=== PATIENT | female | born 1945 | race Caucasian/White ===

== ENCOUNTER 2018-07-07 10:02 | Inpatient (IN) ==
--- NOTE | 2018-07-07 10:16 | Emergency Department Note ---
Disposition Clinical Impression: Acute kidney injury superimposed on chronic kidney disease, Hyperkalemia Pneumonia Qualifiers: Pneumonia type: due to unspecified organism Laterality: right Lung location: upper lobe of lung Qualified Code(s): J18.1 - Lobar pneumonia, unspecified organism Hypotension Qualifiers: Hypotension type: unspecified hypotension type Qualified Code(s): I95.9 - Hypotension, unspecified Disposition: Admitted As Inpatient Condition: Fair Time of Disposition: 12:43 General Adult HPI - General Chief complaint: ED General Medical Stated complaint: level of unconsciousness Time Seen by Provider: 07/07/18 10:13 Source: EMS Mode of arrival: EMS Limitations: altered mental status Nursing Notes Reviewed: Yes Vital Signs Reviewed: Yes - History of Present Illness HPI Narrative: This is a 72 yo F brought in by EMS for AMS. Pt has skin cancer with mets to bone and is on fentanyl patches. Pt is currently receiving radiation treatments. Apparently family at home where pt was picked up states pt became unresponsive and they state she has been on narcotic pain medication but in small doses and hasn't had anything today. Pt also had CKD. Pt is oriented to person but not to place and time. Pain Scale: 0 - Related Data Home Medications Medication Instructions Recorded Confirmed RX: Aspirin 81 mg PO DAILY 09/02/16 07/07/18 RX: Furosemide [Lasix] 20 mg PO DAILY 09/02/16 07/07/18 Docusate Sodium [Stool Softener] 100 mg PO DAILY 07/07/18 07/07/18 Omeprazole [PriLOSEC] 20 mg PO DAILY 07/07/18 07/07/18 Previous Rx's Medication Instructions Recorded RX: Ondansetron HCl [Zofran] 4 mg PO Q4H PRN #30 tablet 06/11/18 RX: Cyanocobalamin (B-12) [Vitamin 1,000 mcg SL DAILY #30 tablet 06/23/18 B12] RX: FentaNYL PATCH [Duragesic] 25 mcg TD Q72H 30 Days #10 07/06/18 patch.[id number] Allergies Allergy/AdvReac Type Severity Reaction Status Date / Time Penicillins Allergy Swelling Verified 07/06/18 15:11 of Lip/Tongue/Throat Limitations: ROS unobtainable due to patients medical condition (AMS) Past Medical History - Past Medical History Source: old records reviewed Medical history: Reports: arthritis, cancer, DVT, hypertension Surgical history: Reports: hysterectomy Psychiatric history: Reports: depression - Social History Smoking Status: Former smoker Smokeless Tobacco Status: No Alcohol use: Reports: none Drug use: Reports: none Physical Exam - General Limitations: altered mental status - Head Head exam: atraumatic, normocephalic - Eye Eye exam: Present: other (pinpoint pupils) - ENT ENT exam: normal exam, normal oropharynx - Neck Neck exam: Present: normal inspection, full ROM, trachea midline - Chest Chest inspection: Present: normal inspection, symmetric chest wall rise - Respiratory Respiratory exam: Present: normal lung sounds bilaterally, respiratory distress - Cardiovascular Cardiovascular exam: Present: regular rate, normal rhythm - Abdominal Exam Abdominal exam: Present: soft, Non-Tender - Extremities Exam Extremities exam: Present: normal inspection, full ROM. Absent: tenderness, pedal edema - Neurological Exam Neurological exam: Present: alert, other (oriented to person not to place and time) - Skin Skin exam: Present: warm, intact, diaphoresis Course - Consultations Consultation #1: I spoke with Dr. Carrillo nephjuana rodriguez to consult on pt. She requests a 3rd liter of fluid, cpk, linzeloid and cefepime for pneumonia treatment, and lag[place]as cath placement. Time: 12:28 Consultation #2: I spoke with Dr. Ernesto rodriguez to admit to ICU. Time: 12:42 Vital Signs Temperature 99.0 F 07/07/18 10:06 Pulse Rate 95 07/07/18 10:06 Respiratory Rate 16 07/07/18 10:06 Blood Pressure 171/124 07/07/18 10:06 O2 Sat by Pulse Oximetry 89 07/07/18 10:06 Temperature 98.6 F 07/07/18 18:10 Pulse Rate 78 07/07/18 19:00 Respiratory Rate 19 07/07/18 19:00 Blood Pressure 106/79 07/07/18 19:00 O2 Sat by Pulse Oximetry 91 07/07/18 19:00 Oxygen Delivery Oxygen Delivery Nasal Cannula Medical Decision Making - Medical Records Medical records reviewed: Yes I reviewed the patient's medical records. - Lab Data Lab results reviewed: Yes I reviewed the patient's lab results. Result diagrams: 07/07/18 11:00 07/07/18 18:11 Lab Results 03/19/19 03/19/19 03/19/19 Range/Units 10:58 11:00 11:00 WBC 11.4 H (4.3-11.1) K/mcL RBC 4.26 (3.82-4.97) M/mcL Hgb 12.8 (11.5-15.4) g/dL Hct 39.7 (35.3-44.9) % MCV 93.2 (83.0-100.0) fL MCH 30.0 (28.0-33.3) pg MCHC 32.2 (31.6-35.5) g/dL RDW 12.4 (11.5-14.5) % Plt Count 222 (140-400) K/mcL MPV 10.3 (9.4-12.4) fL Immature Gran % 1.8 (0-4) % Seg Neutrophils % 88.4 % Lymphocytes % 3.8 % Monocytes % 5.5 % Eosinophils % 0.1 % Basophils % 0.4 % Neutrophils # 10.1 H (1.6-8.9) K/mcL Lymphocytes # 0.4 L (0.6-4.6) K/mcL Monocytes # 0.6 (0.0-1.3) K/mcL Eosinophils # 0.0 (0.0-0.6) K/mcL Basophils # 0.1 (0.0-0.2) K/mcL Nucleated RBCs/100 WBC 0.5 H (0) /100 WBC PT (9.4-12.1) Seconds INR APTT (26.0-36.0) Seconds Sample Site L Radial ABG pH 7.36 (7.32-7.45) pH Units ABG pCO2 45 (35-45) mmHg ABG pO2 94 (85-104) mmHg ABG HCO3 25 (21-27) mEq/L ABG Total CO2 27 H (20-26) mEq/L ABG O2 Saturation 97 (95-98) % ABG Base Excess -1 (-2 to 3) mEq/L Bob Test N/A O2 Delivery Device Cannula Inspired O2 32.0 (1-15=lpm [id number]=%) Sodium 132 L (136-145) mEq/L Potassium 6.0 H (3.5-5.1) mEq/L Chloride 94 L (98-107) mEq/L Carbon Dioxide 21 L (23-29) mEq/L BUN 92 H (8-23) mg/dL Creatinine 4.62 H (0.60-1.20) mg/dL Est GFR ( Amer) 11 L (> 60) Est GFR (Non-Af Amer) 9 L (> 60) BUN/Creatinine Ratio 20 (6-26) Glucose 174 H (70-105) mg/dL Calculated Osmolality 307 H (280-300) Lactic Acid (0.5-2.2) mmol/L Calcium 13.3 H* (8.6-10.3) mg/dL Venous Ioniz Calcium (1.15-1.35) mmol/L Total Bilirubin 1.1 H (0.3-1.0) mg/dL AST 28 (13-39) Units/L ALT 14 (7-52) Units/L Alkaline Phosphatase 104 (34-104) Units/L Ammonia (16-53) mcmol/L Creatine Kinase (30-223) Units/L Troponin I < 0.03 (< 0.04) ng/mL B-Natriuretic Peptide (Less than 100) pg/mL Serum Total Protein 6.6 (6.4-8.9) g/dL Albumin 3.3 L (3.5-5.7) g/dL Globulin 3.3 (2.4-3.5) g/dL Albumin/Globulin Ratio 1.0 L (1.1-2.2) TSH 2.152 (0.340-5.600) mcIU/mL Urine Color (Yellow) Urine Clarity (Clear) Urine pH (5.0-8.0) pH Units Ur Specific [place] (1.010-1.025) Urine Protein (Neg-Trace) mg/dL Urine Glucose (UA) (Normal) mg/dL Urine Ketones (Negative) mg/dL Urine Blood (Negative) Urine Nitrite (Negative) Urine Bilirubin (Negative) Urine Urobilinogen (Normal) mg/dL Ur Leukocyte Esterase (Negative) Urine Microscopic RBC (0-3) per hpf Urine Microscopic WBC (0-3) per hpf Ur Squamous Epith Cells (None-Few) per lpf Amorphous Sediment (Few) Urine Bacteria (None-Few) per hpf Hyaline Casts (None-Few) per lpf 07/07/18 07/07/18 07/07/18 Range/Units 11:00 11:00 11:00 WBC (4.3-11.1) K/mcL RBC (3.82-4.97) M/mcL Hgb (11.5-15.4) g/dL Hct (35.3-44.9) % MCV (83.0-100.0) fL MCH (28.0-33.3) pg MCHC (31.6-35.5) g/dL RDW (11.5-14.5) % Plt Count (140-400) K/mcL MPV (9.4-12.4) fL Immature Gran % (0-4) % Seg Neutrophils % % Lymphocytes % % Monocytes % % Eosinophils % % Basophils % % Neutrophils # (1.6-8.9) K/mcL Lymphocytes # (0.6-4.6) K/mcL Monocytes # (0.0-1.3) K/mcL Eosinophils # (0.0-0.6) K/mcL Basophils # (0.0-0.2) K/mcL Nucleated RBCs/100 WBC (0) /100 WBC PT (9.4-12.1) Seconds INR APTT (26.0-36.0) Seconds Sample Site ABG pH (7.32-7.45) pH Units ABG pCO2 (35-45) mmHg ABG pO2 (85-104) mmHg ABG HCO3 (21-27) mEq/L ABG Total CO2 (20-26) mEq/L ABG O2 Saturation (95-98) % ABG Base Excess (-2 to 3) mEq/L Bob Test O2 Delivery Device Inspired O2 (1-15=lpm [id number]=%) Sodium (136-145) mEq/L Potassium (3.5-5.1) mEq/L Chloride (98-107) mEq/L Carbon Dioxide (23-29) mEq/L BUN (8-23) mg/dL Creatinine (0.60-1.20) mg/dL Est GFR ( Amer) (> 60) Est GFR (Non-Af Amer) (> 60) BUN/Creatinine Ratio (6-26) Glucose (70-105) mg/dL Calculated Osmolality (280-300) Lactic Acid 2.7 H (0.5-2.2) mmol/L Calcium (8.6-10.3) mg/dL Venous Ioniz Calcium (1.15-1.35) mmol/L Total Bilirubin (0.3-1.0) mg/dL AST (13-39) Units/L ALT (7-52) Units/L Alkaline Phosphatase (34-104) Units/L Ammonia 88 H (16-53) mcmol/L Creatine Kinase (30-223) Units/L Troponin I (< 0.04) ng/mL B-Natriuretic Peptide 120 H (Less than 100) pg/mL Serum Total Protein (6.4-8.9) g/dL Albumin (3.5-5.7) g/dL Globulin (2.4-3.5) g/dL Albumin/Globulin Ratio (1.1-2.2) TSH (0.340-5.600) mcIU/mL Urine Color (Yellow) Urine Clarity (Clear) Urine pH (5.0-8.0) pH Units Ur Specific [place] (1.010-1.025) Urine Protein (Neg-Trace) mg/dL Urine Glucose (UA) (Normal) mg/dL Urine Ketones (Negative) mg/dL Urine Blood (Negative) Urine Nitrite (Negative) Urine Bilirubin (Negative) Urine Urobilinogen (Normal) mg/dL Ur Leukocyte Esterase (Negative) Urine Microscopic RBC (0-3) per hpf Urine Microscopic WBC (0-3) per hpf Ur Squamous Epith Cells (None-Few) per lpf Amorphous Sediment (Few) Urine Bacteria (None-Few) per hpf Hyaline Casts (None-Few) per lpf 07/07/18 07/07/18 07/07/18 Range/Units 11:00 11:45 14:04 WBC (4.3-11.1) K/mcL RBC (3.82-4.97) M/mcL Hgb (11.5-15.4) g/dL Hct (35.3-44.9) % MCV (83.0-100.0) fL MCH (28.0-33.3) pg MCHC (31.6-35.5) g/dL RDW (11.5-14.5) % Plt Count (140-400) K/mcL MPV (9.4-12.4) fL Immature Gran % (0-4) % Seg Neutrophils % % Lymphocytes % % Monocytes % % Eosinophils % % Basophils % % Neutrophils # (1.6-8.9) K/mcL Lymphocytes # (0.6-4.6) K/mcL Monocytes # (0.0-1.3) K/mcL Eosinophils # (0.0-0.6) K/mcL Basophils # (0.0-0.2) K/mcL Nucleated RBCs/100 WBC (0) /100 WBC PT 12.9 H (9.4-12.1) Seconds INR 1.1 APTT 24.1 L (26.0-36.0) Seconds Sample Site ABG pH (7.32-7.45) pH Units ABG pCO2 (35-45) mmHg ABG pO2 (85-104) mmHg ABG HCO3 (21-27) mEq/L ABG Total CO2 (20-26) mEq/L ABG O2 Saturation (95-98) % ABG Base Excess (-2 to 3) mEq/L Bob Test O2 Delivery Device Inspired O2 (1-15=lpm [id number]=%) Sodium (136-145) mEq/L Potassium (3.5-5.1) mEq/L Chloride (98-107) mEq/L Carbon Dioxide (23-29) mEq/L BUN (8-23) mg/dL Creatinine (0.60-1.20) mg/dL Est GFR ( Amer) (> 60) Est GFR (Non-Af Amer) (> 60) BUN/Creatinine Ratio (6-26) Glucose (70-105) mg/dL Calculated Osmolality (280-300) Lactic Acid (0.5-2.2) mmol/L Calcium (8.6-10.3) mg/dL Venous Ioniz Calcium (1.15-1.35) mmol/L Total Bilirubin (0.3-1.0) mg/dL AST (13-39) Units/L ALT (7-52) Units/L Alkaline Phosphatase (34-104) Units/L Ammonia (16-53) mcmol/L Creatine Kinase 71 (30-223) Units/L Troponin I (< 0.04) ng/mL B-Natriuretic Peptide (Less than 100) pg/mL Serum Total Protein (6.4-8.9) g/dL Albumin (3.5-5.7) g/dL Globulin (2.4-3.5) g/dL Albumin/Globulin Ratio (1.1-2.2) TSH (0.340-5.600) mcIU/mL Urine Color Dark Yellow (Yellow) Urine Clarity Slightly Hazy (Clear) Urine pH 5.0 (5.0-8.0) pH Units Ur Specific [place] 1.030 H (1.010-1.025) Urine Protein 30 H (Neg-Trace) mg/dL Urine Glucose (UA) Normal (Normal) mg/dL Urine Ketones Negative (Negative) mg/dL Urine Blood Negative (Negative) Urine Nitrite Negative (Negative) Urine Bilirubin Small H (Negative) Urine Urobilinogen Normal (Normal) mg/dL Ur Leukocyte Esterase Trace H (Negative) Urine Microscopic RBC 0-3 (0-3) per hpf Urine Microscopic WBC 0-3 (0-3) per hpf Ur Squamous Epith Cells Many H (None-Few) per lpf Amorphous Sediment Moderate H (Few) Urine Bacteria None Seen (None-Few) per hpf Hyaline Casts Moderate H (None-Few) per lpf 07/07/18 Range/Units 14:23 WBC (4.3-11.1) K/mcL RBC (3.82-4.97) M/mcL Hgb (11.5-15.4) g/dL Hct (35.3-44.9) % MCV (83.0-100.0) fL MCH (28.0-33.3) pg MCHC (31.6-35.5) g/dL RDW (11.5-14.5) % Plt Count (140-400) K/mcL MPV (9.4-12.4) fL Immature Gran % (0-4) % Seg Neutrophils % % Lymphocytes % % Monocytes % % Eosinophils % % Basophils % % Neutrophils # (1.6-8.9) K/mcL Lymphocytes # (0.6-4.6) K/mcL Monocytes # (0.0-1.3) K/mcL Eosinophils # (0.0-0.6) K/mcL Basophils # (0.0-0.2) K/mcL Nucleated RBCs/100 WBC (0) /100 WBC PT (9.4-12.1) Seconds INR APTT (26.0-36.0) Seconds Sample Site ABG pH (7.32-7.45) pH Units ABG pCO2 (35-45) mmHg ABG pO2 (85-104) mmHg ABG HCO3 (21-27) mEq/L ABG Total CO2 (20-26) mEq/L ABG O2 Saturation (95-98) % ABG Base Excess (-2 to 3) mEq/L Bob Test O2 Delivery Device Inspired O2 (1-15=lpm [id number]=%) Sodium (136-145) mEq/L Potassium (3.5-5.1) mEq/L Chloride (98-107) mEq/L Carbon Dioxide (23-29) mEq/L BUN (8-23) mg/dL Creatinine (0.60-1.20) mg/dL Est GFR ( Amer) (> 60) Est GFR (Non-Af Amer) (> 60) BUN/Creatinine Ratio (6-26) Glucose (70-105) mg/dL Calculated Osmolality (280-300) Lactic Acid (0.5-2.2) mmol/L Calcium (8.6-10.3) mg/dL Venous Ioniz Calcium 1.57 H (1.15-1.35) mmol/L Total Bilirubin (0.3-1.0) mg/dL AST (13-39) Units/L ALT (7-52) Units/L Alkaline Phosphatase (34-104) Units/L Ammonia (16-53) mcmol/L Creatine Kinase (30-223) Units/L Troponin I (< 0.04) ng/mL B-Natriuretic Peptide (Less than 100) pg/mL Serum Total Protein (6.4-8.9) g/dL Albumin (3.5-5.7) g/dL Globulin (2.4-3.5) g/dL Albumin/Globulin Ratio (1.1-2.2) TSH (0.340-5.600) mcIU/mL Urine Color (Yellow) Urine Clarity (Clear) Urine pH (5.0-8.0) pH Units Ur Specific [place] (1.010-1.025) Urine Protein (Neg-Trace) mg/dL Urine Glucose (UA) (Normal) mg/dL Urine Ketones (Negative) mg/dL Urine Blood (Negative) Urine Nitrite (Negative) Urine Bilirubin (Negative) Urine Urobilinogen (Normal) mg/dL Ur Leukocyte Esterase (Negative) Urine Microscopic RBC (0-3) per hpf Urine Microscopic WBC (0-3) per hpf Ur Squamous Epith Cells (None-Few) per lpf Amorphous Sediment (Few) Urine Bacteria (None-Few) per hpf Hyaline Casts (None-Few) per lpf - Radiology Data Radiology results reviewed: Yes I reviewed the patient's radiology results. - EKG Data EKG #1 EKG shows normal: sinus rhythm Rate: normal Rhythm: NSR Mead/QRS: normal Interpretation: no acute changes Critical Care Time Critical Care Time: Yes Total Critical Care Time: 30 Attestation: I spent 30 minutes assessing pt, re-evaluating her, reviewing labs and imaging, and talking to consultants.
[2018-07-07] MEDS ORDERED: 0.9 % Sodium Chloride 1,000 ML IV SCH ×3 (10:45→12:45)
[2018-07-07 11:01] LABS: ABG Base Excess -1 mEq/L (-2 to 3); ABG HCO3 25 mEq/L (21-27); ABG Oxygen Saturation 97 % (95-98); ABG PCO2 45 mmHg (35-45); ABG PH 7.36 pH Units (7.32-7.45); ABG PO2 94 mmHg (85-104); ABG TCO2 27 mEq/L (20-26)
[2018-07-07 11:12] LABS: Basophils # 0.1 K/mcL (0.0-0.2); Basophils % 0.4 %; Eosinophils % 0.1 %; Hematocrit 39.7 % (35.3-44.9); Hemoglobin 12.8 g/dL (11.5-15.4); Immature Granulocytes % 1.8 % (0-4); Lymphocytes # 0.4 K/mcL (0.6-4.6); Lymphocytes % 3.8 %; Mean Corpuscular HGB Conc 32.2 g/dL (31.6-35.5); Mean Corpuscular Volume 93.2 fL (83.0-100.0); Mean Platelet Volume 10.3 fL (9.4-12.4); Monocytes # 0.6 K/mcL (0.0-1.3); Monocytes % 5.5 %; Neutrophils # 10.1 K/mcL (1.6-8.9); Nucleated Red Blood Cells 0.5 /100 WBC (0); Platelet Count 222 K/mcL (140-400); Red Blood Count 4.26 M/mcL (3.82-4.97); Red Cell Distribution Width 12.4 % (11.5-14.5); Segmented Neutrophils % 88.4 %
[2018-07-07 11:25] LABS: INR 1.1; Prothrombin Time 12.9 Seconds (9.4-12.1)
[2018-07-07 11:28] LABS: Activated Partial Thrombo Time 24.1 Seconds (26.0-36.0)
[2018-07-07 11:46] LABS: Alanine Aminotransferase 14 Units/L (7-52); Albumin 3.3 g/dL (3.5-5.7); Alkaline Phosphatase 104 Units/L (34-104); Aspartate Amino Transferase 28 Units/L (13-39); BUN/Creatinine Ratio 20 (6-26); Bilirubin,Total 1.1 mg/dL (0.3-1.0); Blood Urea Nitrogen 92 mg/dL (8-23); Calcium 13.3 mg/dL (8.6-10.3); Carbon Dioxide 21 mEq/L (23-29); Chloride 94 mEq/L (98-107); Globulin 3.3 g/dL (2.4-3.5); Glucose 174 mg/dL (70-105); Osmolality,Calculated 307 (280-300); Sodium 132 mEq/L (136-145); Total Protein 6.6 g/dL (6.4-8.9); Troponin I < 0.03 ng/mL (< 0.04); eGFR For Non-African Americans 9 (> 60)
[2018-07-07 11:51] LABS: Thyroid Stimulating Hormone 2.152 mcIU/mL (0.340-5.600)
[2018-07-07] MEDS ORDERED: 0.9 % Sodium Chloride 1,000 ML ONE (11:52)
[2018-07-07] MEDS: 0.9 % Sodium Chloride 1,000 ML ONE ×2 (11:53→16:57)
[2018-07-07] MEDS ORDERED: Cefepime HCl 1,000 MG in 0.9 % Sodium Chloride Mini Bag 100 ML IVPB ONE (12:27)
[2018-07-07 12:30] LABS: Bilirubin,Urine Small (Negative); Blood,Urine Negative (Negative); Color,Urine Dark Yellow (Yellow); Glucose,Urine (UA) Normal (Normal); Ketones,Urine Negative (Negative); Leukocyte Esterase,Urine Trace (Negative); Nitrite,Urine Negative (Negative); Protein,Urine 30 mg/dL (Neg-Trace); Urobilinogen,Urine Normal (Normal)
[2018-07-07 12:33] LABS: Bacteria,Urine None Seen per hpf (None-Few); Hyaline Casts,Urine Moderate per lpf (None-Few); RBC,Urine 0-3 per hpf (0-3); Squamous Epithelial Cell,Urine Many per lpf (None-Few); WBC,Urine 0-3 per hpf (0-3)
[2018-07-07 12:35] LABS: Clarity,Urine Slightly Hazy (Clear)
[2018-07-07 12:43] LABS: Amorphous Sediment,Urine Moderate (Few)
--- NOTE | 2018-07-07 13:54 | Pulmonology History & Physical ---
<Michela Valdez - Last Filed: 07/07/18 17:51> Date of Encounter: 07/07/18 Time of Encounter: 14:00 Assessment and Plan (1) Acute encephalopathy Status: Acute Likely multifactorial due to polypharmacy with opiates, sepsis, elevated ammonia, electrolyte abnormalities Oriented to person only. Follows commands Will avoid sedative agents for now CT head without acute intracranial abnormality Nonfocal neurologic examination (2) Sepsis Status: Acute Tachycardia, lactic acidosis Initially hypotensive but fluid responsive Likely source: RUL pneumonia Blood cultures x2 negative Check MRSA swab, legionella and strep ag Follow up repeat lactate Continue with vancomycin and cefepime and will de-escelate Qualifiers: Sepsis type: sepsis due to unspecified organism Qualified Code(s): A41.9 - Sepsis, unspecified organism (3) Pneumonia Status: Acute RUL pneumonia Blood cultures x2 pending Check urine strep Ag and legionella ag Received linezolid and cefepime in ER Will continue with vancomycin and cefepime tomorrow and de-escelate Qualifiers: Pneumonia type: due to unspecified organism Laterality: right Lung location: upper lobe of lung Qualified Code(s): J18.1 - Lobar pneumonia, unspecified organism (4) Acute kidney injury superimposed on chronic kidney disease Status: Acute BUN 92, Cr 4.62, GFR 9 Chronic kidney disease stage III/IV and follows up with Dr. Heredia Patient is very dehydrated Appreciate nephrology recommendations Continue fluid resuscitation. Maintenance fluids per nephrology Avoid nephrotoxic agents Monitor strict I's and O's F/u uric acid level, urine protein creatinine ration, urine sodium, urine microalbumin (5) Hypercalcemia Status: Acute Calcium is 13.3. Ionized calcium elevated 1.57 Likely secondary to patient's malignancy PTH pending Continue IVFs Appreciate Nephrology recommendations (6) Hyperkalemia Status: Acute Potassium 6.0 Will repeat potassium and if elevated will give kayexelate Continue IVFs Continue to monitor (7) Metastatic squamous cell carcinoma Status: Acute Squamous cell carcinoma with bone metastasis Currently receiving radiation and is to start immunomodulators this week Discussed with Dr. Kim Oncology will be consulted (8) Constipation Status: Resolved Patient takes colace at home Significant abdominal distension and tenderness on exam Likely secondary to hypercalcemia and opiate use Will check CT A/P to evaluate for acute abnormality NG tube Placement and NPO Will give miralax Qualifiers: Constipation type: slow transit constipation Qualified Code(s): K59.01 - Slow transit constipation (9) DVT prophylaxis Status: Acute SCDs (10) Goals of care, counseling/discussion Status: Acute Discussed with patient's who is POA, and family at bedside Patient is full code Palliative care consulted History of Present Illness Chief complaint: decreased consciousness HPI: Ms. Broussard is a 72 year old female with past medical history including chronic kidney disease, stage III/IV who follows up with Dr. 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 Patient's last chemotherapy was in February 2018. Patient is currently receiving radiation therapy for bone metastasis. She presented to the emergency department today with decreased consciousness and confusion. The patient was complaining of increased pain, especially in her left shoulder, to the emergency department 2 days ago. She takes a fentanyl patch at home for chronic pain. She was prescribed morphine 30. Yesterday she followed up with her oncologist, Dr. Kim, who decreased the patient's morphine. Family states yesterday the patient appeared to be groggy, however she was still ambulating with her walker and doing tasks around the house. This morning, the patient's and daughter states the patient was very drowsy and not very responsive. She would open her eyes to her name however would just stare into space. She was not answering questions. Family took off her fentanyl patch which seemed to help somewhat. They state her mental status have been waxing and waning throughout the day and brought the patient to the emergency department for further evaluation. They deny recent illnesses. Last radiation was yesterday. She has had a decreased appetite for the past couple of days. Patient denies any chest pain, shortness of breath, fevers, chills, headaches. She does state she feels generally weak. She does not know when her last bowel movement is. Family states she has been taking Colace that she has been more constipated recently. No blood in her stool. Past Med Surg Social Fam HX - Past Medical History Source: old records reviewed, obtained from family Medical history: arthritis, cancer, DVT, hypertension Additional medical history: diverticulosis. emphysema. depression. polycystics dx. squamous cell carcinoma Psychiatric history: depression - Past Surgical History Surgical History: hysterectomy Additional surgical history: basal cell carcinoma from nose. phlebectomy 2017. varicose veins 08/24/2016. excision of SCC from left buttock 05/2017 - Social History Smoking Status: Former smoker Smokeless Tobacco Status: No Alcohol use: none Drug use: none Medications and Allergies RX: Aspirin 81 mg PO DAILY 09/02/16 [History] RX: Furosemide [Lasix] 20 mg PO DAILY 09/02/16 [History] RX: Ondansetron HCl [Zofran] 4 mg PO Q4H PRN #30 tablet 06/11/18 [Rx] RX: Cyanocobalamin (B-12) [Vitamin B12] 1,000 mcg SL DAILY #30 tablet 06/23/18 [Rx] RX: FentaNYL PATCH [Duragesic] 25 mcg TD Q72H 30 Days #10 patch.td72 07/06/18 [Rx] Docusate Sodium [Stool Softener] 100 mg PO DAILY 07/07/18 [History] Omeprazole [PriLOSEC] 20 mg PO DAILY 07/07/18 [History] Allergy/AdvReac Type Severity Reaction Status Date / Time Penicillins Allergy Swelling Verified 07/06/18 15:11 of Lip/Tongue/Throat ROS unobtainable: due to mental status (confusion) All Systems: The remainder of the systems were reviewed and are negative Physical Examination Vital Signs: Vital Signs, Last 4 Hours Temp Pulse Resp BP Pulse Ox 07/07/18 12:08 81 17 72/55 94 07/07/18 10:06 99.0 F 95 16 171/124 89 General appearance: no acute distress, lethargic, other (opens eyes and responds to name. Starts to fall asleep when talking to patient) Eyes: nonicteric, other (PERRL, EOMI) ENT: oropharynx dry Neck: supple, no JVD, other (chest with right sided chemo port, no drainage or erythema) Effort: other (Clear to auscultation bilaterally without wheezing) Cardiovascular: regular rate and rhythm, other (no murmur) Gastrointestinal: other (distended and hard abdomen with generalized tenderness) Integumentary: other (warm, dry, intact) Extremities: no cyanosis, no edema CN II-XII normal, motor strength normal and symmetric, other (alert to person. Unable to say time and place. follows commands appropriately. No sensory defici ts) mood appropriate, affect normal Results - Laboratory Findings CBC and BMP: 07/07/18 11:00 07/07/18 11:00 ABG ABG pH 7.36 pH Units (7.32-7.45) 07/07/18 10:58 ABG pCO2 45 mmHg (35-45) 07/07/18 10:58 ABG pO2 94 mmHg (85-104) 07/07/18 10:58 ABG O2 Saturation 97 % (95-98) 07/07/18 10:58 PT/INR, D-dimer PT 12.9 Seconds (9.4-12.1) H 07/07/18 11:00 Abnormal lab findings: Abnormal lab results WBC 11.4 K/mcL (4.3-11.1) H 07/07/18 11:00 Neutrophils # 10.1 K/mcL (1.6-8.9) H 07/07/18 11:00 Lymphocytes # 0.4 K/mcL (0.6-4.6) L 07/07/18 11:00 Nucleated RBCs/100 WBC 0.5 /100 WBC (0) H 07/07/18 11:00 PT 12.9 Seconds (9.4-12.1) H 07/07/18 11:00 APTT 24.1 Seconds (26.0-36.0) L 07/07/18 11:00 ABG Total CO2 27 mEq/L (20-26) H 07/07/18 10:58 Sodium 132 mEq/L (136-145) L 07/07/18 11:00 Potassium 6.0 mEq/L (3.5-5.1) H 07/07/18 11:00 Chloride 94 mEq/L (98-107) L 07/07/18 11:00 Carbon Dioxide 21 mEq/L (23-29) L 07/07/18 11:00 BUN 92 mg/dL (8-23) H 07/07/18 11:00 Creatinine 4.62 mg/dL (0.60-1.20) H 07/07/18 11:00 Est GFR ( Amer) 11 (> 60) L 07/07/18 11:00 Est GFR (Non-Af Amer) 9 (> 60) L 07/07/18 11:00 Glucose 174 mg/dL (70-105) H 07/07/18 11:00 Calculated Osmolality 307 (280-300) H 07/07/18 11:00 Lactic Acid 2.7 mmol/L (0.5-2.2) H 07/07/18 11:00 Calcium 13.3 mg/dL (8.6-10.3) H* 07/07/18 11:00 Total Bilirubin 1.1 mg/dL (0.3-1.0) H 07/07/18 11:00 Ammonia 88 mcmol/L (16-53) H 07/07/18 11:00 B-Natriuretic Peptide 120 pg/mL (Less than 100) H 07/07/18 11:00 Albumin 3.3 g/dL (3.5-5.7) L 07/07/18 11:00 Albumin/Globulin Ratio 1.0 (1.1-2.2) L 07/07/18 11:00 Ur Specific [place] 1.030 (1.010-1.025) H 07/07/18 11:45 Urine Protein 30 mg/dL (Neg-Trace) H 07/07/18 11:45 Urine Bilirubin Small (Negative) H 07/07/18 11:45 Ur Leukocyte Esterase Trace (Negative) H 07/07/18 11:45 Ur Squamous Epith Cells Many per lpf (None-Few) H 07/07/18 11:45 Amorphous Sediment Moderate (Few) H 07/07/18 11:45 Hyaline Casts Moderate per lpf (None-Few) H 07/07/18 11:45 <Adalberto Donald M - Last Filed: 07/08/18 16:05> Date of Encounter: 07/08/18 History of Present Illness HPI: Ms. Broussard is a 72 year old female All Systems: The remainder of the systems were reviewed and are negative Physical Examination Vital Signs: Vital Signs, Last 4 Hours Pulse Resp BP Pulse Ox 07/07/18 15:45 81 20 105/77 91 07/07/18 15:00 82 16 97/73 91 07/07/18 14:00 84 16 105/82 90 Results - Laboratory Findings CBC and BMP: 07/08/18 02:52 07/08/18 02:52 ABG ABG pH 7.36 pH Units (7.32-7.45) 07/07/18 10:58 ABG pCO2 45 mmHg (35-45) 07/07/18 10:58 ABG pO2 94 mmHg (85-104) 07/07/18 10:58 ABG O2 Saturation 97 % (95-98) 07/07/18 10:58 PT/INR, D-dimer PT 12.9 Seconds (9.4-12.1) H 07/07/18 11:00 Abnormal lab findings: Abnormal lab results WBC 11.4 K/mcL (4.3-11.1) H 07/07/18 11:00 Neutrophils # 10.1 K/mcL (1.6-8.9) H 07/07/18 11:00 Lymphocytes # 0.4 K/mcL (0.6-4.6) L 07/07/18 11:00 Nucleated RBCs/100 WBC 0.5 /100 WBC (0) H 07/07/18 11:00 PT 12.9 Seconds (9.4-12.1) H 07/07/18 11:00 APTT 24.1 Seconds (26.0-36.0) L 07/07/18 11:00 ABG Total CO2 27 mEq/L (20-26) H 07/07/18 10:58 Sodium 132 mEq/L (136-145) L 07/07/18 11:00 Potassium 6.0 mEq/L (3.5-5.1) H 07/07/18 11:00 Chloride 94 mEq/L (98-107) L 07/07/18 11:00 Carbon Dioxide 21 mEq/L (23-29) L 07/07/18 11:00 BUN 92 mg/dL (8-23) H 07/07/18 11:00 Creatinine 4.62 mg/dL (0.60-1.20) H 07/07/18 11:00 Est GFR ( Amer) 11 (> 60) L 07/07/18 11:00 Est GFR (Non-Af Amer) 9 (> 60) L 07/07/18 11:00 Glucose 174 mg/dL (70-105) H 07/07/18 11:00 Calculated Osmolality 307 (280-300) H 07/07/18 11:00 Lactic Acid 2.7 mmol/L (0.5-2.2) H 07/07/18 11:00 Calcium 13.3 mg/dL (8.6-10.3) H* 07/07/18 11:00 Venous Ioniz Calcium 1.57 mmol/L (1.15-1.35) H 07/07/18 14:23 Total Bilirubin 1.1 mg/dL (0.3-1.0) H 07/07/18 11:00 Ammonia 88 mcmol/L (16-53) H 07/07/18 11:00 B-Natriuretic Peptide 120 pg/mL (Less than 100) H 07/07/18 11:00 Albumin 3.3 g/dL (3.5-5.7) L 07/07/18 11:00 Albumin/Globulin Ratio 1.0 (1.1-2.2) L 07/07/18 11:00 Ur Specific [place] 1.030 (1.010-1.025) H 07/07/18 11:45 Urine Protein 30 mg/dL (Neg-Trace) H 07/07/18 11:45 Urine Bilirubin Small (Negative) H 07/07/18 11:45 Ur Leukocyte Esterase Trace (Negative) H 07/07/18 11:45 Ur Squamous Epith Cells Many per lpf (None-Few) H 07/07/18 11:45 Amorphous Sediment Moderate (Few) H 07/07/18 11:45 Hyaline Casts Moderate per lpf (None-Few) H 07/07/18 11:45 - Attending Attestation I examined this patient and my medical decision-making [facility]. I agree with the documented findings, disposition and treatment plan as described except to the extent set forth below. Patient seen and examined. I was called by ER physician and pt was seen and examined in the ER Labs, radiology, chart personally reviewed. 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 She is in pain and she will need pain control Pulmonary: Acceptable oxygenation and ventilation, however I'm concern about her ventilation and due to abdominal pain, I expect there will be atelectasis. She is high risk and she might even end up on invasive mechanical ventilation Cardiovascular: BP borderline, however clinically she is intravascular volume depleted and she needs aggressive fluid replacement and we need to give her more when she is in ICU. GI: Nutrition per dietary and GI prophylaxis per routine. I'm very concern about her abdominal examination and ordered CT abdomen which showed evidence of ischemic bowel and this is very serious situation in her case. Heme: DVT prophylaxis per routine. History of cancer ID: Continue antibiotics and plan to de-escalation Renal; urine out put and renal funtion reviewed. Patient with hypercalcemia and needs aggressive fluid resuscitation and I feel she will need lasix with it if not controlling her hypercalcemia and she might even in need to IV therapy Endorcine: blood glucose is monitored Lines: all lines checked and no evidence of infections Skin: skin care to prevent pressure ulcers per nursing routine care Overall poorprognsis and patiet remain full code. I spent 40 min of Critical Care time with this patient. It involved decision making of high complexity to assess, manipulate, and support vital organ system failure and/or to prevent further life threatening deterioration of the patient's condition. The time involved in the performance of separately reportable procedures was not counted toward critical care time.
[2018-07-07 14:27] LABS: VBG Ionized Calcium 1.57 mmol/L (1.15-1.35)
[2018-07-07] MEDS ORDERED: Naloxone 0.4 MG/ML INJ IVP PRN (15:07)
--- NOTE | 2018-07-07 16:13 | Nephrology Consult Note ---
Date of Encounter: 07/07/18 Time of Encounter: 16:11 Assessment and Plan (1) Acute kidney injury superimposed on chronic kidney disease Current Visit: Yes Status: Acute KAILEY on CKD 3/4 - likely pre-renal secondary to dehydration and sepsis SCr 4.62 and GFR 9 - baseline SCr 1.8-2.1 and GFR 20-30's CPK is normal, no known falls Recheck BMP and lactic acid Will check urine studies and renal ultrasound Will start with medical management of hyperkalemia and hypotension No kayexalate with findings of ischemic colitis Recommend fluid resusitation and close monitoring - 1 L 1/2 NS with 75 meq of sodium bicarb, then continue NS after Follow renal protective strategy: daily weights, I/O's, and avoid nephrotoxic agents is possible (2) Hyperkalemia Current Visit: Yes Status: Acute K 6.0 in the setting of KAILEY and sepsis Will give bicarb with next bag of fluid Close monitoring for worsening (3) Hypercalcemia Current Visit: Yes Status: Acute Calcium 13.3 - likely secondary to malignancy with bone metastasis and hx of pathological fractures - hyperparathyroidism or adrenal insufficiency may be playing a role as well Will check PTH and cortisol (4) Pneumonia Current Visit: Yes Status: Acute Antibiotics per primary team Qualifiers: Pneumonia type: due to unspecified organism Laterality: right Lung location: upper lobe of lung Qualified Code(s): J18.1 - Lobar pneumonia, unspecified organism (5) Hypotension Current Visit: Yes Status: Acute Qualifiers: Hypotension type: unspecified hypotension type Qualified Code(s): I95.9 - Hypotension, unspecified (6) Metastatic squamous cell carcinoma Current Visit: No Status: Acute (7) Ischemic colitis Current Visit: Yes Status: Acute Ischemic colitis on CT Primary discussing with general surgery to evaluate the patient History of Present Illness - Reason for Consult Consult date: 07/07/18 Acute Kidney Injury, Chronic Kidney Disease, hyperkalemia Requesting physician: Rosenda Espinosa - Chief Complaint KAILEY on CKD, Hyperkalemia, Hypercalcemia - History of Present Illness Ms. Broussard is a 72 yo female with PMH of metastatic squamous cell skin cancer to bone, CKD 3/4 (recently established with Dr. Heredia), and HTN. She is admitted with sepsis 2/2 pneumonia and KAILEY/CKD. History obtained from and family. Her states that when he woke up this morning she was not very responsive. The family removed the fentanyl patch that she had been wearing and that seemed to help some. Since then she has been "in and out" of talking and responding to them. Then for the past 2 days she has not been eating and drinking well. She had not been complaining of other symptoms to her other than her shoulder and back pain. He states she has not had any chemo for several months. She has not been taking any NSAIDs, antibiotics, or had any recent contrast dye. Past Med Surg Social Fam HX - Past Medical History Medical history: arthritis, cancer, DVT, hypertension Additional medical history: diverticulosis. emphysema. depression. polycystics dx. squamous cell carcinoma Psychiatric history: depression - Past Surgical History Surgical History: hysterectomy Additional surgical history: basal cell carcinoma from nose. phlebectomy 2016. varicose veins 08/24/2016. excision of SCC from left buttock 05/2017 - Social History Smoking Status: Former smoker Smokeless Tobacco Status: No Alcohol use: none Drug use: none Medications and Allergies Aspirin 81 mg PO DAILY 09/02/16 [History] Furosemide [Lasix] 20 mg PO DAILY 09/02/16 [History] Ondansetron HCl [Zofran] 4 mg PO Q4H PRN #30 tablet 06/11/18 [Rx] Cyanocobalamin (B-12) [Vitamin B12] 1,000 mcg SL DAILY #30 tablet 06/23/18 [Rx] FentaNYL PATCH [Duragesic] 25 mcg TD Q72H 30 Days #10 patch.td72 07/06/18 [Rx] Docusate Sodium [Stool Softener] 100 mg PO DAILY 07/07/18 [History] Omeprazole [PriLOSEC] 20 mg PO DAILY 07/07/18 [History] Allergy/AdvReac Type Severity Reaction Status Date / Time Penicillins Allergy Swelling Verified 07/06/18 15:11 of Lip/Tongue/Throat Review of Systems ROS unobtainable: due to mental status Exam - Vital Signs Vital signs: Initial Vital Signs Temp Pulse Resp BP Pulse Ox 99.0 F 95 16 171/124 89 07/07/18 10:06 07/07/18 10:06 07/07/18 10:06 07/07/18 10:06 07/07/18 10:06 Vital Signs - Last 8 Hours Temp Pulse Resp BP Pulse Ox 07/07/18 15:45 81 20 105/77 91 07/07/18 15:00 82 16 97/73 91 07/07/18 14:00 84 16 105/82 90 07/07/18 12:08 81 17 72/55 94 07/07/18 10:06 99.0 F 95 16 171/124 89 Intake and Output 07/07/18 07/07/18 07/07/18 07:59 15:59 23:59 Other: Weight 79.9 kg Patient Weight 07/07/18 23:59 Weight 79.9 kg - General Appearance General appearance: chronically ill, frail EENT: ATNC, mucous membranes dry Neck: supple Respiratory: course breath sounds Cardiology: no edema, regular rate, regular rhythm Gastrointestinal: normoactive bowel sounds, tenderness (diffuse), distended Integumentary: warm and dry Neurologic: confused (opens eyes to name) Musculoskeletal: no cyanosis Results - Lab Results 07/07/18 11:00 07/07/18 18:11 Most recent lab results ABG pH 7.36 pH Units (7.32-7.45) 07/07/18 10:58 ABG pCO2 45 mmHg (35-45) 07/07/18 10:58 ABG pO2 94 mmHg (85-104) 07/07/18 10:58 ABG HCO3 25 mEq/L (21-27) 07/07/18 10:58 ABG O2 Saturation 97 % (95-98) 07/07/18 10:58 Calcium 13.3 mg/dL (8.6-10.3) H* 07/07/18 11:00 Consult Discharge Plan - Plan Referrals: Humza Dickerson DO [Primary Care Provider] -
[2018-07-07] MEDS ORDERED: *HR* Dextrose 50 % in Water (Syg) 50 ML SYRINGE IVP PRN (18:18)
[2018-07-07] MEDS ORDERED: Dextrose Gel 15 GM/37.5 ML TUBE PO PRN ×2 (18:18)
[2018-07-07] MEDS ORDERED: D5% in Water 1,000 ML IVC PRN (18:18)
[2018-07-07] MEDS ORDERED: Sodium Bicarbonate 75 MEQ in 0.45 % Sodium Chloride 1,000 ML IVC SCH (18:30)
[2018-07-07 18:44] LABS: Calcium 11.4 mg/dL (8.6-10.3); Potassium 5.9 mEq/L (3.5-5.1)
--- NOTE | 2018-07-07 18:57 | Event Note ---
<Sharon Rosadolin M - Last Filed: 07/07/18 18:54> Date of Encounter: 07/07/18 Time of Encounter: 18:54 Received call from [place] [facility] with findings of the patient's CT abdomen/pelvis. There is evidence of ischemic colitis on the patient's CT abdomen and given her presence of abdominal pain and elevated lactic acidosis of 2.7 do believe the patient require surgical consultation. Discussed case with on-call surgeon, Dr. Pedroza who will come to evaluate the patient. She recommends addition of Flagyl, continued IV fluids, and adequate pain control. She requests the patient be kept nothing by mouth. Discussed findings with Dr. Donald who agrees with plan for consultation to general surgery. Patient ev aluated at bedside and stable at this time. She does have a distended and diffusely tender abdomen. Antioiotics being initiated with bicarb and IVF. <Adalberto Donald M - Last Filed: 07/07/18 22:44> Date of Encounter: 07/07/18 I examined this patient and my medical decision-making was reviewed with the Resident Physician. I agree with the documented findings, disposition and treatment plan as described except to the extent set forth above. Patient clinically has symptoms consistent with diagnosis of ischemic bowel and surgery has been consulted. Patient is high risk and poor prognosis. Empirically covered with antibiotics.
[2018-07-07 20:49] LABS: Protein/Creatinine Ratio,Urine 1.62 mg/mg (0.00-0.20); Sodium, Urine 24.3 mEq/L
[2018-07-07] MEDS ORDERED: Insulin LISPRO 300 UNITS/3 ML VIAL SQ SCH (21:00)
[2018-07-07] MEDS: MetroNIDAZOLE 500 MG/100 ML 500 MG/100 ML BAG IVPB SCH (21:17)
[2018-07-07] MEDS ORDERED: Cefepime HCl 1,000 MG in Water for inj. (sterile) 20 ML 10 ML IVP SCH (22:00)
[2018-07-07] MEDS: 0.9 % Sodium Chloride 1,000 ML IVC SCH (22:21)
--- NOTE | 2018-07-07 23:11 | AcuteCare Surgery Consult Note ---
Date of Encounter: 07/07/18 Time of Encounter: 20:30 Assessment and Plan (1) Ischemic colitis Current Visit: Yes Status: Acute Pt is not toxic with WBC 11.4, lactate 2.9 and normal pH. Recommend CTA abd/pelvis, NPO, IVF, IV abx and close following. Do not recommend surgery for colectomy unless pt condition worsens. Do not recommend colonoscopy unless pt condition worsens. Thank you for allowing me to participate in this patient's care. (2) Metastatic squamous cell carcinoma Current Visit: No Status: Acute History of Present Illness Consult date: 07/07/18 Reason for consult: other (ischemic colitis) Requesting physician: Abbey Rosado History of present illness: This 72 y/o pt presents to [facility] ED with decreased consciousness. She was found with impaired responsiveness by family who call the squad. They report that she has a diagnosis of SCC of skin with mets to bone that was treated with XRT that finished in Feb. They deny any known hx of colon disease. They confirm that she was seen by PCP for claudication but, report that she was never diagnosed with PVD. No report of bloody diarrhea. No report of n/v. No report of fever. Past Med Surg Social Fam HX - Past Medical History Medical history: arthritis, cancer, DVT, hypertension Additional medical history: diverticulosis. emphysema. depression. polycystics dx. squamous cell carcinoma Psychiatric history: depression - Past Surgical History Surgical History: hysterectomy Additional surgical history: basal cell carcinoma from nose. phlebectomy 2016. varicose veins 08/24/2016. excision of SCC from left buttock 05/2017 - Social History Smoking Status: Former smoker Smokeless Tobacco Status: No Alcohol use: none Drug use: none Medications and Allergies Aspirin 81 mg PO DAILY 09/02/16 [History] Furosemide [Lasix] 20 mg PO DAILY 09/02/16 [History] Ondansetron HCl [Zofran] 4 mg PO Q4H PRN #30 tablet 06/11/18 [Rx] Cyanocobalamin (B-12) [Vitamin B12] 1,000 mcg SL DAILY #30 tablet 06/23/18 [Rx] FentaNYL PATCH [Duragesic] 25 mcg TD Q72H 30 Days #10 patch.td72 07/06/18 [Rx] Docusate Sodium [Stool Softener] 100 mg PO DAILY 07/07/18 [History] Omeprazole [PriLOSEC] 20 mg PO DAILY 07/07/18 [History] Allergy/AdvReac Type Severity Reaction Status Date / Time Penicillins Allergy Swelling Verified 07/06/18 15:11 of Lip/Tongue/Throat Review of Systems ROS unobtainable: due to mental status All systems PM: The remainder of the systems were reviewed and are negative - Constitutional as per HPI General Surgery Exam Initial Vital Signs Temp Pulse Resp BP Pulse Ox 99.0 F 95 16 171/124 89 07/07/18 10:06 07/07/18 10:06 07/07/18 10:06 07/07/18 10:06 07/07/18 10:06 - General physical appearance no distress, other (somnolent) - Eyes PERRL. negative: icteric - ENT no congestion, dry mucosa. negative: nasal discharge - Neck no masses, no lymphadectomy, no venous distension - Respiratory normal respiratory effort, clear to auscultation - Cardiovascular Cardiovascular exam: Present: RRR - Abdomen Abdomen general surgery: Present: bowel sounds present (mildly hypoactive), soft, non tender - Genitourinary Present: normal external genitalia - Integumentary Integumentary general surgery: Present: warm and dry - Neurologic Present: other (arousable but, nonresponsive and somnolent) - Musculoskeletal Present: normal posture - Psychiatric Psychiatric general surgery: Absent: A&Ox3 Exam Initial Vital Signs Temp Pulse Resp BP Pulse Ox 99.0 F 95 16 171/124 89 07/07/18 10:06 07/07/18 10:06 07/07/18 10:06 07/07/18 10:06 07/07/18 10:06 Results - Labs 07/07/18 11:00 07/07/18 18:11 Abnormal lab results WBC 11.4 K/mcL (4.3-11.1) H 07/07/18 11:00 Neutrophils # 10.1 K/mcL (1.6-8.9) H 07/07/18 11:00 Lymphocytes # 0.4 K/mcL (0.6-4.6) L 07/07/18 11:00 Nucleated RBCs/100 WBC 0.5 /100 WBC (0) H 07/07/18 11:00 PT 12.9 Seconds (9.4-12.1) H 07/07/18 11:00 APTT 24.1 Seconds (26.0-36.0) L 07/07/18 11:00 ABG Total CO2 27 mEq/L (20-26) H 07/07/18 10:58 Sodium 133 mEq/L (136-145) L 07/07/18 18:11 Potassium 5.9 mEq/L (3.5-5.1) H 07/07/18 18:11 Carbon Dioxide 19 mEq/L (23-29) L 07/07/18 18:11 BUN 93 mg/dL (8-23) H 07/07/18 18:11 Creatinine 4.32 mg/dL (0.60-1.20) H 07/07/18 18:11 Est GFR ( Amer) 12 (> 60) L 07/07/18 18:11 Est GFR (Non-Af Amer) 10 (> 60) L 07/07/18 18:11 Glucose 227 mg/dL (70-105) H 07/07/18 18:11 Calculated Osmolality 312 (280-300) H 07/07/18 18:11 Lactic Acid 2.9 mmol/L (0.5-2.2) H 07/07/18 18:11 Calcium 11.4 mg/dL (8.6-10.3) H 07/07/18 18:11 Venous Ioniz Calcium 1.57 mmol/L (1.15-1.35) H 07/07/18 14:23 Total Bilirubin 1.1 mg/dL (0.3-1.0) H 07/07/18 11:00 Ammonia 88 mcmol/L (16-53) H 07/07/18 11:00 B-Natriuretic Peptide 120 pg/mL (Less than 100) H 07/07/18 11:00 Albumin 3.3 g/dL (3.5-5.7) L 07/07/18 11:00 Albumin/Globulin Ratio 1.0 (1.1-2.2) L 07/07/18 11:00 Ur Specific [place] 1.030 (1.010-1.025) H 07/07/18 11:45 Urine Protein 30 mg/dL (Neg-Trace) H 07/07/18 11:45 Urine Bilirubin Small (Negative) H 07/07/18 11:45 Ur Leukocyte Esterase Trace (Negative) H 07/07/18 11:45 Ur Squamous Epith Cells Many per lpf (None-Few) H 07/07/18 11:45 Amorphous Sediment Moderate (Few) H 07/07/18 11:45 Hyaline Casts Moderate per lpf (None-Few) H 07/07/18 11:45 Microalb/Creat Ratio 317 mcg/mg (Less than 30) H 07/07/18 19:15 Protein/Creatinin Ratio 1.62 mg/mg (0.00-0.20) H 07/07/18 19:15 Urine Total Protein 178 mg/dL (1-14) H 07/07/18 19:15 Diabetes panel 07/07/18 07/07/18 Range/Units 11:00 18:11 Sodium 132 L 133 L (136-145) mEq/L Potassium 6.0 H 5.9 H (3.5-5.1) mEq/L Chloride 94 L 100 (98-107) mEq/L Carbon Dioxide 21 L 19 L (23-29) mEq/L BUN 92 H 93 H (8-23) mg/dL Creatinine 4.62 H 4.32 H (0.60-1.20) mg/dL Glucose 174 H 227 H (70-105) mg/dL Calcium 13.3 H* 11.4 H (8.6-10.3) mg/dL AST 28 (13-39) Units/L ALT 14 (7-52) Units/L Alkaline Phosphatase 104 (34-104) Units/L Albumin 3.3 L (3.5-5.7) g/dL Thyroid panel 07/07/18 Range/Units 11:00 TSH 2.152 (0.340-5.600) mcIU/mL Calcium panel 07/07/18 07/07/18 Range/Units 11:00 18:11 Calcium 13.3 H* 11.4 H (8.6-10.3) mg/dL Albumin 3.3 L (3.5-5.7) g/dL Pituitary panel 07/07/18 07/07/18 Range/Units 11:00 18:11 Sodium 132 L 133 L (136-145) mEq/L Potassium 6.0 H 5.9 H (3.5-5.1) mEq/L Chloride 94 L 100 (98-107) mEq/L Carbon Dioxide 21 L 19 L (23-29) mEq/L BUN 92 H 93 H (8-23) mg/dL Creatinine 4.62 H 4.32 H (0.60-1.20) mg/dL Glucose 174 H 227 H (70-105) mg/dL Calcium 13.3 H* 11.4 H (8.6-10.3) mg/dL TSH 2.152 (0.340-5.600) mcIU/mL Adrenal panel 07/07/18 07/07/18 Range/Units 11:00 18:11 Sodium 132 L 133 L (136-145) mEq/L Potassium 6.0 H 5.9 H (3.5-5.1) mEq/L Chloride 94 L 100 (98-107) mEq/L Carbon Dioxide 21 L 19 L (23-29) mEq/L BUN 92 H 93 H (8-23) mg/dL Creatinine 4.62 H 4.32 H (0.60-1.20) mg/dL Glucose 174 H 227 H (70-105) mg/dL Calcium 13.3 H* 11.4 H (8.6-10.3) mg/dL Total Bilirubin 1.1 H (0.3-1.0) mg/dL AST 28 (13-39) Units/L ALT 14 (7-52) Units/L Alkaline Phosphatase 104 (34-104) Units/L Albumin 3.3 L (3.5-5.7) g/dL All other labs normal. - Imaging CT scan - abdomen: image reviewed (Thickened colon wall in transverse and sigmoid colon. Gas in superior mesenteric vein. Reactive SB ileus. No pneumotosis intestinalis or coli.) CT scan - pelvis: image reviewed Consult Discharge Plan - Plan Referrals: Humza Dickerson DO [Primary Care Provider] -
[2018-07-07] MEDS ORDERED: Isovue-370 500 ML BOTTLE IVP ONE (23:22)
[2018-07-07] MEDS: Insulin LISPRO 300 UNITS/3 ML VIAL SQ SCH (23:35)
[2018-07-08] MEDS ORDERED: Cefepime HCl 2,000 MG in Water for inj. (sterile) 20 ML 20 ML IVP SCH
[2018-07-08 03:15] LABS: Hematocrit 38.9 % (35.3-44.9); Hemoglobin 12.4 g/dL (11.5-15.4); Mean Corpuscular HGB Conc 31.9 g/dL (31.6-35.5); Mean Corpuscular Hemoglobin 29.7 pg (28.0-33.3); Mean Corpuscular Volume 93.3 fL (83.0-100.0); Mean Platelet Volume 10.9 fL (9.4-12.4); Platelet Count 177 K/mcL (140-400); Red Blood Count 4.17 M/mcL (3.82-4.97); Red Cell Distribution Width 12.5 % (11.5-14.5)
[2018-07-08 03:16] LABS: Nucleated Red Blood Cells 0.8 /100 WBC (0)
[2018-07-08] MEDS ORDERED: Acetaminophen IV 500 MG/50 ML INFUS..BTL IVPB ONE (03:30)
[2018-07-08 03:36] LABS: Lymphocytes # 0.8 K/mcL (0.6-4.6); Monocytes # 0.2 K/mcL (0.0-1.3); Neutrophils # 6.6 K/mcL (1.6-8.9)
[2018-07-08 03:37] LABS: Platelet Estimate Normal (Normal); Polychromasia 1+ (Not Present)
[2018-07-08] MEDS: MetroNIDAZOLE 500 MG/100 ML 500 MG/100 ML BAG IVPB SCH (03:43)
[2018-07-08] MEDS: 0.9 % Sodium Chloride 1,000 ML IVC SCH (03:48)
[2018-07-08 04:41] LABS: Calcium 11.5 mg/dL (8.6-10.3); Magnesium 2.9 mg/dL (1.6-2.6); Phosphorous 7.5 mg/dL (2.7-4.5); Potassium 6.3 mEq/L (3.5-5.1); Uric Acid 8.6 mg/dL (2.3-7.6)
[2018-07-08] MEDS ORDERED: 0.9 % Sodium Chloride 1,000 ML IVC ONE (05:31)
[2018-07-08] MEDS: Insulin LISPRO 300 UNITS/3 ML VIAL SQ SCH (06:23)
--- NOTE | 2018-07-08 07:13 | Pulmonology Progress Note ---
<Michela Valdez - Last Filed: 07/08/18 10:35> Date of Encounter: 07/08/18 Time of Encounter: 07:15 Assessment and Plan (1) Ischemic colitis Status: Acute CT abdomen and pelvis suspicious for ischemic colitis with gas within the mesenteric venules in portal venous system, sigmoid colonic diverticulosis with wall thickening, reactive adynamic ileus Lactate 3.0, leukocytosis resolved However given patient's clinical presentation with abd distension and tenderness, have strong clinical suspicion patient has ischemic colitis. Patient also has KAILEY, electrolyte abnromalities, elevated ammonia which all may be secondary to ischemic colitis Appreciate General surgery recommendations Keep patient NPO Continue flagyl Had discussion with patient's family and they would like to make the patient comfortable, DNR/DNI No surgery (2) Sepsis Status: Acute Likely source: RUL pneumonia and ischemic colitis Repeat lactate 3.0 Blood cultures x2 negative to date Legionella ag and strep pneumoniae ag negative Continue with vancomycin, cefepime, and flagyl Qualifiers: Sepsis type: sepsis due to unspecified organism Qualified Code(s): A41.9 - Sepsis, unspecified organism (3) Pneumonia Status: Acute RUL pneumonia Repeat CXR with right upper lobe collapse with underlying pneumoniae and possible mucous plugging Continue vancomycin and cefepime Switch BiPAP to high flow oxygen as the positive pressure may be making the abdominal distension worse and patient more uncomfortable Qualifiers: Pneumonia type: due to unspecified organism Laterality: right Lung location: upper lobe of lung Qualified Code(s): J18.1 - Lobar pneumonia, unspecified organism (4) Acute encephalopathy Status: Acute Likely multifactorial due to polypharmacy with opiates, sepsis, elevated ammonia, electrolyte abnormalities CT head without acute intracranial abnormalities (5) Acute kidney injury superimposed on chronic kidney disease Status: Acute Slightly worse today with BUN 106, Cr 4.42, GFR 10 Likely worsened secondary to ischemic colitis Cortisol >60, protein creatinin ratio 1.62 Chronic kidney disease stage III/IV and follows up with Dr. Heredia Appreciate nephrology recommendations S/p 3L IVFs and 1L 0.45% sodium chloride with sodium bicarb Maintenance fluids have been discontinued due to crackles on lung examination (6) Hypercalcemia Status: Acute Calcium is 11.5 today. Ionized calcium elevated 1.57 Likely secondary to patient's malignancy PTH 39.5 and TSH 2.125 Continue IVFs Appreciate Nephrology recommendations (7) Hyperkalemia Status: Acute Potassium elevated to 6.3 Comfort care (8) Metastatic squamous cell carcinoma Status: Acute Squamous cell carcinoma with bone metastasis Currently receiving radiation and is to start immunomodulators this week Oncology consulted Family has decided to make the patient comfortable (9) DVT prophylaxis Status: Acute SCDs (10) Goals of care, counseling/discussion Status: Acute Long discussion with family at bedside. Changed code status to DNR/DNI comfort care Family would like to make the patient comfortable at this time. Subjective Principal diagnosis: decreased consciousness Interval history: Yesterday evening, CT abdomen and pelvis results showed ischemic colitis. General surgery consultation was obtained. Flagyl was added to her antibiotic regimen. Patient remains nothing by mouth. Patient seen and examined at bedside this morning. She is in distress and in pain. She does not respond to questions. Still appears confused. Patient is currently oxygenating on BiPAP. She does have crackles bilateral lung bases and a stat chest x-ray was obtained. Fluids were discontinued. Discussed with the general surgery team. Patient does have diffuse ischemic colitis. Discussed with family at bedside goals of care. They wish to make the patient comfortable at this time. They do not want chest compressions or intubation. We will change the patient's CODE STATUS to DNR/DNI comfort care. Palliative care consult has been ordered. We will give fentanyl for the patient's pain at this time. Objective PUL Vital signs: Last Vital Signs Temp 100 F H 07/08/18 03:31 Pulse 107 07/08/18 06:00 Resp 23 07/08/18 06:00 BP 100/62 07/08/18 06:00 Pulse Ox 95 07/08/18 06:00 General appearance: appears uncomfortable, other (in distress) Eyes: nonicteric, other (normal conjunctiva) ENT: oropharynx dry Neck: no JVD Effort: other (crackles bilaterally with diminished breath sounds) Cardiovascular: other (tachycardic, regular rhythm) Gastrointestinal: hypoactive bowel sounds, other (diffuse abdominal tenderness with distension, but soft. ) Integumentary: other (warm, dry, intact) Extremities: no cyanosis, no edema Musculoskeletal: no deformities other (confused, not answering quesitons or following commands) other (unable to assess psychiatric exam) Results - Laboratory Findings CBC and BMP: 07/08/18 02:52 07/08/18 02:52 ABG ABG pH 7.36 pH Units (7.32-7.45) 07/07/18 10:58 ABG pCO2 45 mmHg (35-45) 07/07/18 10:58 ABG pO2 94 mmHg (85-104) 07/07/18 10:58 ABG O2 Saturation 97 % (95-98) 07/07/18 10:58 PT/INR, D-dimer PT 12.9 Seconds (9.4-12.1) H 07/07/18 11:00 Abnormal lab findings: Abnormal lab results Band Neutrophils % 32.0 % (0-4) H 07/08/18 02:52 Metamyelocytes % 4.0 % (0) H 07/08/18 02:52 Nucleated RBCs/100 WBC 0.8 /100 WBC (0) H 07/08/18 02:52 Polychromasia 1+ (Not Present) A 07/08/18 02:52 PT 12.9 Seconds (9.4-12.1) H 07/07/18 11:00 APTT 24.1 Seconds (26.0-36.0) L 07/07/18 11:00 ABG Total CO2 27 mEq/L (20-26) H 07/07/18 10:58 Sodium 133 mEq/L (136-145) L 07/08/18 02:52 Potassium 6.3 mEq/L (3.5-5.1) H 07/08/18 02:52 Carbon Dioxide 15 mEq/L (23-29) L 07/08/18 02:52 BUN 106 mg/dL (8-23) H 07/08/18 02:52 Creatinine 4.42 mg/dL (0.60-1.20) H 07/08/18 02:52 Est GFR ( Amer) 12 (> 60) L 07/08/18 02:52 Est GFR (Non-Af Amer) 10 (> 60) L 07/08/18 02:52 Glucose 137 mg/dL (70-105) H 07/08/18 02:52 POC Glucose 150 mg/dL (70-99) H 07/07/18 23:25 Calculated Osmolality 311 (280-300) H 07/08/18 02:52 Lactic Acid 3.0 mmol/L (0.5-2.2) H 07/08/18 02:52 Uric Acid 8.6 mg/dL (2.3-7.6) H 07/08/18 02:52 Calcium 11.5 mg/dL (8.6-10.3) H 07/08/18 02:52 Venous Ioniz Calcium 1.57 mmol/L (1.15-1.35) H 07/07/18 14:23 Phosphorus 7.5 mg/dL (2.7-4.5) H 07/08/18 02:52 Magnesium 2.9 mg/dL (1.6-2.6) H 07/08/18 02:52 Total Bilirubin 1.1 mg/dL (0.3-1.0) H 07/07/18 11:00 Ammonia 122 mcmol/L (16-53) H 07/08/18 02:52 B-Natriuretic Peptide 120 pg/mL (Less than 100) H 07/07/18 11:00 Albumin 3.3 g/dL (3.5-5.7) L 07/07/18 11:00 Albumin/Globulin Ratio 1.0 (1.1-2.2) L 07/07/18 11:00 Ur Specific [place] 1.030 (1.010-1.025) H 07/07/18 11:45 Urine Protein 30 mg/dL (Neg-Trace) H 07/07/18 11:45 Urine Bilirubin Small (Negative) H 07/07/18 11:45 Ur Leukocyte Esterase Trace (Negative) H 07/07/18 11:45 Ur Squamous Epith Cells Many per lpf (None-Few) H 07/07/18 11:45 Amorphous Sediment Moderate (Few) H 07/07/18 11:45 Hyaline Casts Moderate per lpf (None-Few) H 07/07/18 11:45 Microalb/Creat Ratio 317 mcg/mg (Less than 30) H 07/07/18 19:15 Protein/Creatinin Ratio 1.62 mg/mg (0.00-0.20) H 07/07/18 19:15 Urine Total Protein 178 mg/dL (1-14) H 07/07/18 19:15 - Microbiology Findings Microbiology Findings: Microbiology, Last 48 Hours 07/07/18 19:15 Legionella Antigen - Final Urine,[place] Streptococcus pneumoniae Antigen (M - Final 07/07/18 11:00 Blood Culture - Preliminary Peripheral Venipuncture Culture is incubating and being continuously monitored for growth. Final report to follow. 07/07/18 10:50 Blood Culture - Preliminary Peripheral Venipuncture Culture is incubating and being continuously monitored for growth. Final report to follow. - Clinical Findings Intake & Output: Intake & Output 07/07/18 07/07/18 07/08/18 15:59 23:59 07:59 Intake Total 1000 / 1000 360 / 360 1225 / 1225 Output Total 50 / 50 Balance 1000 / 1000 360 / 360 1175 / 1175 Weight 79.9 kg Consult Discharge Plan - Plan Referrals: Humza Dickerson DO [Primary Care Provider] - <Adalberto Donald - Last Filed: 07/08/18 16:04> Date of Encounter: 07/08/18 Objective PUL Vital signs: Last Vital Signs Temp 100.6 F H 07/08/18 08:35 Pulse 110 07/08/18 07:00 Resp 38 07/08/18 07:00 BP 106/82 07/08/18 07:00 Pulse Ox 85 07/08/18 07:00 Results - Laboratory Findings CBC and BMP: 07/08/18 02:52 07/08/18 02:52 ABG ABG pH 7.36 pH Units (7.32-7.45) 07/07/18 10:58 ABG pCO2 45 mmHg (35-45) 07/07/18 10:58 ABG pO2 94 mmHg (85-104) 07/07/18 10:58 ABG O2 Saturation 97 % (95-98) 07/07/18 10:58 PT/INR, D-dimer PT 12.9 Seconds (9.4-12.1) H 07/07/18 11:00 Abnormal lab findings: Abnormal lab results Band Neutrophils % 32.0 % (0-4) H 07/08/18 02:52 Metamyelocytes % 4.0 % (0) H 07/08/18 02:52 Nucleated RBCs/100 WBC 0.8 /100 WBC (0) H 07/08/18 02:52 Polychromasia 1+ (Not Present) A 07/08/18 02:52 PT 12.9 Seconds (9.4-12.1) H 07/07/18 11:00 APTT 24.1 Seconds (26.0-36.0) L 07/07/18 11:00 ABG Total CO2 27 mEq/L (20-26) H 07/07/18 10:58 Sodium 133 mEq/L (136-145) L 07/08/18 02:52 Potassium 6.3 mEq/L (3.5-5.1) H 07/08/18 02:52 Carbon Dioxide 15 mEq/L (23-29) L 07/08/18 02:52 BUN 106 mg/dL (8-23) H 07/08/18 02:52 Creatinine 4.42 mg/dL (0.60-1.20) H 07/08/18 02:52 Est GFR ( Amer) 12 (> 60) L 07/08/18 02:52 Est GFR (Non-Af Amer) 10 (> 60) L 07/08/18 02:52 Glucose 137 mg/dL (70-105) H 07/08/18 02:52 POC Glucose 150 mg/dL (70-99) H 07/07/18 23:25 Calculated Osmolality 311 (280-300) H 07/08/18 02:52 Lactic Acid 3.0 mmol/L (0.5-2.2) H 07/08/18 02:52 Uric Acid 8.6 mg/dL (2.3-7.6) H 07/08/18 02:52 Calcium 11.5 mg/dL (8.6-10.3) H 07/08/18 02:52 Venous Ioniz Calcium 1.57 mmol/L (1.15-1.35) H 07/07/18 14:23 Phosphorus 7.5 mg/dL (2.7-4.5) H 07/08/18 02:52 Magnesium 2.9 mg/dL (1.6-2.6) H 07/08/18 02:52 Total Bilirubin 1.1 mg/dL (0.3-1.0) H 07/07/18 11:00 Ammonia 122 mcmol/L (16-53) H 07/08/18 02:52 B-Natriuretic Peptide 120 pg/mL (Less than 100) H 07/07/18 11:00 Albumin 3.3 g/dL (3.5-5.7) L 07/07/18 11:00 Albumin/Globulin Ratio 1.0 (1.1-2.2) L 07/07/18 11:00 Ur Specific [place] 1.030 (1.010-1.025) H 07/07/18 11:45 Urine Protein 30 mg/dL (Neg-Trace) H 07/07/18 11:45 Urine Bilirubin Small (Negative) H 07/07/18 11:45 Ur Leukocyte Esterase Trace (Negative) H 07/07/18 11:45 Ur Squamous Epith Cells Many per lpf (None-Few) H 07/07/18 11:45 Amorphous Sediment Moderate (Few) H 07/07/18 11:45 Hyaline Casts Moderate per lpf (None-Few) H 07/07/18 11:45 Microalb/Creat Ratio 317 mcg/mg (Less than 30) H 07/07/18 19:15 Protein/Creatinin Ratio 1.62 mg/mg (0.00-0.20) H 07/07/18 19:15 Urine Total Protein 178 mg/dL (1-14) H 07/07/18 19:15 - Microbiology Findings Microbiology Findings: Microbiology, Last 48 Hours 07/07/18 19:15 Legionella Antigen - Final Urine,[place] Streptococcus pneumoniae Antigen (M - Final 07/07/18 11:00 Blood Culture - Preliminary Peripheral Venipuncture Culture is incubating and being continuously monitored for growth. Final report to follow. 07/07/18 10:50 Blood Culture - Preliminary Peripheral Venipuncture Culture is incubating and being continuously monitored for growth. Final report to follow. - Clinical Findings Intake & Output: Intake & Output 07/07/18 07/08/18 07/08/18 23:59 07:59 15:59 Intake Total 360 / 360 1225 / 1225 Output Total 50 / 50 Balance 360 / 360 1175 / 1175 - Attending Attestation I examined this patient and my medical decision-making was reviewed with the Resident Physician. I agree with the documented findings, disposition and treatment plan as described except to the extent set forth below. Patient seen and examined. Labs, radiology, chart personally reviewed. Agree with resident's history and physical, assessment, plan with following comments: [employer]: Patient follows simple commands, Patient with metabolic encephalopathy Pulmonary: Acceptable oxygenation and ventilation, however with the noninvasive ventilation is uncomfortable for the patient and it was taken off. Cardiovascular: Patient with her underlying malignancies and electrolytes abnormalities high risk for . I have told the family that she needs to be comfortable otherwise will need to have it on the mechanical invasive ventilation and they decided to go with comfort care which is appropriate. GI: Nutrition per dietary and GI prophylaxis per routine. Ischemic colitis. Discussed with the surgeon. Heme: DVT prophylaxis per routine ID: Continue antibiotics and plan to de-escalation Renal; urine out put and renal funtion reviewed. Stopped IVF Endorcine: blood glucose is monitored Lines: all lines checked and no evidence of infections Skin: skin care to prevent pressure ulcers per nursing routine care Palliative care consulted and patient to be transferred to floor
[2018-07-08] MEDS ORDERED: *HR* FentaNYL (PF) 100 MCG/2 ML VIAL IVP ONE (07:49)
[2018-07-08] MEDS ORDERED: *HR* FentaNYL (PF) 100 MCG/2 ML VIAL ONE (07:52)
[2018-07-08] MEDS ORDERED: *HR* Morphine 2 MG/ML SYRINGE IVP ONE ×2 (08:07→08:52)
[2018-07-08] MEDS ORDERED: *HR* LORazepam 2 MG/ML VIAL IVP ONE (08:08)
[2018-07-08] MEDS ORDERED: *HR* LORazepam 2 MG/ML VIAL ONE (08:11)
[2018-07-08] MEDS ORDERED: Pantoprazole 40 MG VIAL IVP SCH (09:00)
[2018-07-08] MEDS ORDERED: Vancomycin 1 EACH in EMPTY BAG 1 EACH IVPB SCH (09:00)
[2018-07-08] MEDS ORDERED: FentaNYL (PF) 1,000 MCG in 0.9 % Sodium Chloride 80 ML IVC SCH (09:15)
--- NOTE | 2018-07-08 09:28 | Palliative - Consult Note ---
Date of Encounter: 07/08/18 Time of Encounter: 09:22 - Assessment and Plan (1) Goals of care, counseling/discussion Current Visit: No Status: Acute Assessment and plan: Meeting with patient's family: Chad, sons Matt and Ana, daughters Michelle and Lauren, Sister Arti, grand-children Marie, Enrike and Trace. Family was informed of patient's current medical condition, they have discussed with surgery that explained the diagnosis of ischemic cholitis and did not recommend surgery in view of PMH and instability. Family have resolved that they would like comfort care only at this point. Explained that patient appears to be actively dying and will be transitioned to comfort care. Discussed that medications will be used will the sole purpose to manage pain and discomfort, but as a result patient may be more drowsy and may have a shorter dying process. Family demonstrated understanding and is agreeable. Patient may be transferred to under hospitalist service, anticipated prognosis of hours to days, if she stabilizes, she will be admitted to [facility] tomorrow. (2) Abdominal pain Current Visit: No Status: Acute Assessment and plan: Patient was moaning and groaning, appears very uncomfortable and in pain. She has received Fentanyl 25mcg IV once, morphine 1mg IV x2 and ativan 1 mg with no improvement. will start fentanyl drip. Qualifiers: Abdominal location: generalized Qualified Code(s): R10.84 - Generalized abdominal pain (3) Ischemic colitis Current Visit: No Status: Acute Assessment and plan: Does not appear toxic, no surgery warranted. symptom management only. (4) Metastatic squamous cell carcinoma Current Visit: No Status: Acute Palliative-CN HPI - Data of Consult Patient: new to practice Requesting Physician: Adalberto Donald MD Primary Care Provider: Humza Dickerson - Consult Narrative Palliative Care/Comfort Measures: Palliative care Reason for consult: goals of care and hospice evaluation History of present illness: Ms. Broussard is a 72 year old female with past medical history including chronic kidney disease, stage III/IV who follows up with Dr. 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 Patient's last chemotherapy was in February 2018. Patient is currently receiving radiation therapy for bone metastasis. She presented to the emergency department with decreased consciousness and confusion and increased pain. he takes a fentanyl patch at home for chronic pain. She was prescribed morphine 30. Yesterday she followed up with her oncologist, Dr. Kim, who decreased the patient's morphine. in admission she had electrolyte imbalances and KAILEY. Physical exam revealed a tense abdomen and CT was positive for ischemic cholitis. Patient was deemed not a good candidate for surgery. Palliative care consult for GOC and symptom management. At the time of exam, patient was lethargic, moaning and groaning in pain, not opening eyes and not verbal, she appeared to be actively dying. Her family was present at the bedside. CC: Adalberto Donald MD - Time Spent with Patient Time: Total time spent is greater than 50% in coordination of care (as documented) at patient's floor/unit and/or counseling patient: Time with patient: 60 minutes Past Med Surg Social Fam HX - Past Medical History Medical history: arthritis, cancer, DVT, hypertension Additional medical history: diverticulosis. emphysema. depression. polycystics dx. squamous cell carcinoma Psychiatric history: depression - Past Surgical History Surgical History: hysterectomy Additional surgical history: basal cell carcinoma from nose. phlebectomy 2017. varicose veins 08/24/2016. excision of SCC from left buttock 05/2017 - Social History Smoking Status: Former smoker Smokeless Tobacco Status: No Alcohol use: none Drug use: none Medications and Allergies Aspirin 81 mg PO DAILY 09/02/16 [History] Furosemide [Lasix] 20 mg PO DAILY 09/02/16 [History] Ondansetron HCl [Zofran] 4 mg PO Q4H PRN #30 tablet 06/11/18 [Rx] Cyanocobalamin (B-12) [Vitamin B12] 1,000 mcg SL DAILY #30 tablet 06/23/18 [Rx] FentaNYL PATCH [Duragesic] 25 mcg TD Q72H 30 Days #10 patch.td72 07/06/18 [Rx] Docusate Sodium [Stool Softener] 100 mg PO DAILY 07/07/18 [History] Omeprazole [PriLOSEC] 20 mg PO DAILY 07/07/18 [History] Allergy/AdvReac Type Severity Reaction Status Date / Time Penicillins Allergy Swelling Verified 07/06/18 15:11 of Lip/Tongue/Throat ROS unobtainable: due to mental status Palliative Care-Exam - Constitutional Vitals: Temp Pulse Resp BP Pulse Ox 100.6 F H 110 38 106/82 85 07/08/18 08:35 07/08/18 07:00 07/08/18 07:00 07/08/18 07:00 07/08/18 07:00 General appearance: Present: average body habitus - Head Head Exam: Present: atraumatic, normal inspection - Expanded ENT Exam Mouth Exam: Present: drooling - Neck Neck exam: Present: normal inspection - Respiratory Respiratory exam: Present: accessory muscle use, respiratory distress, rhonchi - Cardiovascular Cardiovascular exam: Present: bradycardia, +S1, +S2 - GI/Abdominal Exam GI/Abdominal exam: Present: diminished bowel sounds, distended, firm - Catheter Type: Urethral (Rivas) - Extremities Exam Extremities exam: Present: full ROM, pedal edema - Expanded Neurological Exam Coma Scale Verbal Response: None Internal Medicine - CN: Reslt - Labs CBC & Chem 7: 07/08/18 02:52 07/08/18 02:52 Labs: Short CBC 07/07/18 07/08/18 Range/Units 11:00 02:52 WBC 11.4 H 7.9 (4.3-11.1) K/mcL Hgb 12.8 12.4 (11.5-15.4) g/dL Hct 39.7 38.9 (35.3-44.9) % Plt Count 222 177 (140-400) K/mcL Neutrophils # 10.1 H 6.6 (1.6-8.9) K/mcL BMP 07/07/18 07/07/18 07/08/18 11:00 18:11 02:52 Sodium 132 L 133 L 133 L Potassium 6.0 H 5.9 H 6.3 H Chloride 94 L 100 100 Carbon Dioxide 21 L 19 L 15 L BUN 92 H 93 H 106 H Creatinine 4.62 H 4.32 H 4.42 H Glucose 174 H 227 H 137 H Calcium 13.3 H* 11.4 H 11.5 H Cardiac Enzymes 07/07/18 Range/Units 11:00 Troponin I < 0.03 (< 0.04) ng/mL Liver Function 07/07/18 Range/Units 11:00 Total Bilirubin 1.1 H (0.3-1.0) mg/dL AST 28 (13-39) Units/L ALT 14 (7-52) Units/L Alkaline Phosphatase 104 (34-104) Units/L Albumin 3.3 L (3.5-5.7) g/dL Urine 07/07/18 Range/Units 11:45 Urine Color Dark Yellow (Yellow) Urine Clarity Slightly Hazy (Clear) Urine pH 5.0 (5.0-8.0) pH Units Ur Specific [place] 1.030 H (1.010-1.025) Urine Protein 30 H (Neg-Trace) mg/dL Urine Glucose (UA) Normal (Normal) mg/dL - ABG Interpretation ABG results: ABG ABG pH 7.36 pH Units (7.32-7.45) 07/07/18 10:58 ABG pCO2 45 mmHg (35-45) 07/07/18 10:58 ABG pO2 94 mmHg (85-104) 07/07/18 10:58 ABG O2 Saturation 97 % (95-98) 07/07/18 10:58 PT/INR, D-dimer PT 12.9 Seconds (9.4-12.1) H 07/07/18 11:00 - Impressions Impressions Chest X-Ray 07/07/18 10:10 IMPRESSION: Right upper lobe consolidation or atelectasis. D/ / 07/07/2018 11:04:59 Manny Fabian MD / Harleen gonsales Interpreting Provider: Manny Fabian MD Head CT 07/07/18 10:10 IMPRESSION: No acute intracranial abnormality. Mild to moderate parenchymal volume loss, most pronounced in the bilateral frontal and anterior temporal lobes. Minimal chronic microvascular disease. D/ / Matthew Fitzpatrick MD / Matthew Fitzpatrick MD Interpreting Provider: Matthew Fitzpatrick MD Retroperitoneum Ultrasound 07/07/18 15:12 IMPRESSION: Polycystic kidney disease. No evidence of hydronephrosis. Urinary bladder is decompressed by a Rivas catheter. D/ / Patrice Truong MD / Patrice Truong MD Interpreting Provider: Patrice Truong MD Abdomen/Pelvis CT 07/07/18 16:31 IMPRESSION: Findings suspicious for ischemic colitis given gas within the mesenteric venules and portal venous system. Correlate with serum lactate and consider CT angiogram of the abdomen and pelvis. Sigmoid colonic diverticulosis with wall thickening, the latter of which is presumably related to the above. Dilated loops of small bowel are favored to represent a reactive adynamic ileus. Ill-defined gallbladder wall, obscured by motion artifact. If there is concern for cholecystitis, consider ultrasound evaluation. Unchanged cystic adnexal/ovarian masses, which may be further evaluated with ultrasound on a nonemergent basis. D/ / 07/07/2018 18:35:42 Cyrus Cross / lisha Interpreting Provider: Cyrus Cross Chest X-Ray 07/08/18 07:21 IMPRESSION: Right upper lobe collapse, which is new from yesterday's chest radiograph. Underlying pneumonia is a consideration. Mucous plugging is most likely. Respiratory therapy consultation is suggested. If the finding persists, consider CT for further evaluation. D/ / Julio César Finley MD / Julio César Finley MD Interpreting Provider: Julio César Finley MD Consult Discharge Plan - Plan Referrals: Humza Dickerson DO [Primary Care Provider] - Palliative Quality Palliative Quality: Screen for Code Status: Yes, Screen for Goals of Care: Yes, Screen for Pain: Yes, If Pain Regimen Started, Initiate Bowel Regimen: No (Ischemic Cholitis), Screen for Nausea/Vomitting: Yes Code Status: 07/07/18 15:07 Resuscitation Status: Active [RES] Routine Comment: Resuscitation Status: Full Code 07/08/18 07:59 CODE [Resuscitation Status: Active] [RES] Routine Comment: Resuscitation Status: [id number] Palliative Scale - Palliative Performance Scale How ambulatory is this patient?: Totally bed bound What is patient's level of activity and evidence of disease?: Unable to do any activity, Extensive disease How much oral intake does the patient have?: Mouth care only What is this patient's level of consciousness?: Drowsy or coma with or without confusion Palliative Performance Score: 10 %
--- NOTE | 2018-07-08 09:39 | AcuteCareSurgery Progress Note ---
<DionneGarfield Gloria - Last Filed: 07/08/18 09:36> Date of Encounter: 07/08/18 Time of Encounter: 07:40 - Assessment and Plan (1) Ischemic colitis Current Visit: Yes Status: Acute -Intraabdominal catastrophe likely complete ischemia to entire bowel 2/2 hypotensive insult -Clinical status declined immensely overnight and abdomen severely tender to palpation diffusely -Auscultation of abdomen with high pitched, echo type sounds that is likely free air within the abdomen -Multiple organ systems are acutely declining/failing at this point and expect to decline further -CT abd/plv 07/07/18: diffuse colonic wall thickening, sigmoid diverticulosis, mesenteric and portal venous gas. Suspicious for ischemic colitis -CTA abd/plv to further evaluate possible ischemia could not be performed overnight as she was unable to lay flat while becoming hypoxic and need for BiPAP -Lactic on arrival 2.7 which trended upward to 3 today despite IVF and abx but mild leukocytosis of 11.4 decreased to 7.9 which would not be expected with a normal response to ischemic bowel but more sign she is unable to mount a good response to her declining status. -She is now febrile, tachycardic, and tachypneic with borderline hypotension but not requiring pressure support at this time -Acute care surgery team discussed case and prognosis with daughter -Surgical exploration is not recommended and would unlikely impact survival -Recommend comfort measures as prognosis is very poor (2) Metastatic squamous cell carcinoma Current Visit: No Status: Acute -Hx of scc with mets to bone which previously undergone radiation and was due to start immunotherapy soon Subjective Narrative: Worsening clinical status overnight. Severe, diffuse abdominal pain, decreased loc, moaning to self, on BiPAP and tachypneic, tachycardic. Objective Vital Signs - Last 8 Hours Temp Pulse Resp BP Pulse Ox 07/08/18 08:35 100.6 F H 07/08/18 07:00 110 38 106/82 85 07/08/18 06:00 107 23 100/62 95 07/08/18 05:00 114 31 84/71 94 07/08/18 04:00 116 27 90/77 92 07/08/18 03:47 29 115/76 91 07/08/18 03:31 100 F H 07/08/18 03:00 110 31 106/93 94 07/08/18 02:00 108 27 90/72 93 Intake and Output 07/07/18 07/08/18 07/08/18 23:59 07:59 15:59 Intake Total 360 / 360 1225 / 1225 Output Total 50 / 50 Balance 360 / 360 1175 / 1175 Intake: IV Fluids 360 / 360 1225 / 1225 Sodium Bicarbonate 75 MEQ In 0. 1075 / 1075 45% Sodium Chloride 1000 Ml 1000 Ml 1,000 ML @ 125 mls/hr IVC .Q8H36M [facility] Rx#:[id number] Maxipime 1,000 MG In Water for inj. (sterile) 10 ML @ 300 mls/ hr IVP Q24H [facility] Rx#:[id number] Ofirmev 1,000 mg/100 ml 500 mg 50 / 50 In 50 ml @ 200 mls/hr IVPB ONCE ONE Rx#:[id number] Flagyl Premix 500 MG/100 ML 500 100 / 100 100 / 100 mg In 100 ml @ 100 mls/hr IVPB Q8H [facility] Rx#:[id number] Vancocin 1,500 MG In 0.9 % 250 / 250 Sodium Chloride 250 ML @ 166. 667 mls/hr IVPB ONCE ONE Rx#: [id number] Output: Straight Cath 50 / 50 Other: Blood Glucose* 212 - General physical appearance well developed, well nourished, moderate distress, severe pain - Eyes normal ocular movement - ENT dry mucosa - Neck Neck exam: trachea midline - Respiratory other (Shallow breaths, crackles) - Cardiovascular Cardiovascular exam: Present: tachycardia, regular rhythm. Absent: RRR, bradycardia, irregular rhythm, murmurs, clicks, gallop, distant heart sounds - Abdomen Abdomen: Present: bowel sounds present, soft, distended, tender, peritoneal (high pitched/echoing sounds with auscultation ). Absent: rigid Abdominal Tenderness: diffusely (severe diffuse tenderness with minimal palpation ) - Neurologic disoriented - Labs 07/08/18 02:52 07/08/18 02:52 Diabetes panel 07/07/18 07/07/18 07/08/18 Range/Units 11:00 18:11 02:52 Sodium 132 L 133 L 133 L (136-145) mEq/L Potassium 6.0 H 5.9 H 6.3 H (3.5-5.1) mEq/L Chloride 94 L 100 100 (98-107) mEq/L Carbon Dioxide 21 L 19 L 15 L (23-29) mEq/L BUN 92 H 93 H 106 H (8-23) mg/dL Creatinine 4.62 H 4.32 H 4.42 H (0.60-1.20) mg/dL Glucose 174 H 227 H 137 H (70-105) mg/dL Calcium 13.3 H* 11.4 H 11.5 H (8.6-10.3) mg/dL AST 28 (13-39) Units/L ALT 14 (7-52) Units/L Alkaline Phosphatase 104 (34-104) Units/L Albumin 3.3 L (3.5-5.7) g/dL Thyroid panel 07/07/18 Range/Units 11:00 TSH 2.152 (0.340-5.600) mcIU/mL Calcium panel 07/07/18 07/07/18 07/08/18 Range/Units 11:00 18:11 02:52 Calcium 13.3 H* 11.4 H 11.5 H (8.6-10.3) mg/dL Phosphorus 7.5 H (2.7-4.5) mg/dL Albumin 3.3 L (3.5-5.7) g/dL Pituitary panel 07/07/18 07/07/18 07/08/18 Range/Units 11:00 18:11 02:52 Sodium 132 L 133 L 133 L (136-145) mEq/L Potassium 6.0 H 5.9 H 6.3 H (3.5-5.1) mEq/L Chloride 94 L 100 100 (98-107) mEq/L Carbon Dioxide 21 L 19 L 15 L (23-29) mEq/L BUN 92 H 93 H 106 H (8-23) mg/dL Creatinine 4.62 H 4.32 H 4.42 H (0.60-1.20) mg/dL Glucose 174 H 227 H 137 H (70-105) mg/dL Calcium 13.3 H* 11.4 H 11.5 H (8.6-10.3) mg/dL TSH 2.152 (0.340-5.600) mcIU/mL Adrenal panel 07/07/18 07/07/18 07/08/18 Range/Units 11:00 18:11 02:52 Sodium 132 L 133 L 133 L (136-145) mEq/L Potassium 6.0 H 5.9 H 6.3 H (3.5-5.1) mEq/L Chloride 94 L 100 100 (98-107) mEq/L Carbon Dioxide 21 L 19 L 15 L (23-29) mEq/L BUN 92 H 93 H 106 H (8-23) mg/dL Creatinine 4.62 H 4.32 H 4.42 H (0.60-1.20) mg/dL Glucose 174 H 227 H 137 H (70-105) mg/dL Calcium 13.3 H* 11.4 H 11.5 H (8.6-10.3) mg/dL Total Bilirubin 1.1 H (0.3-1.0) mg/dL AST 28 (13-39) Units/L ALT 14 (7-52) Units/L Alkaline Phosphatase 104 (34-104) Units/L Albumin 3.3 L (3.5-5.7) g/dL Consult Discharge Plan - Plan Referrals: Humza Dickerson DO [Primary Care Provider] - <Jah Batista - Last Filed: 07/08/18 12:14> Date of Encounter: 07/08/18 Objective Vital Signs - Last 8 Hours Temp Pulse Resp BP Pulse Ox 07/08/18 08:35 100.6 F H 07/08/18 07:00 110 38 106/82 85 07/08/18 06:00 107 23 100/62 95 07/08/18 05:00 114 31 84/71 94 Intake and Output 07/07/18 07/08/18 07/08/18 23:59 07:59 15:59 Intake Total 360 / 360 1225 / 1225 Output Total 50 / 50 Balance 360 / 360 1175 / 1175 Intake: IV Fluids 360 / 360 1225 / 1225 Sodium Bicarbonate 75 MEQ In 0. 1075 / 1075 45% Sodium Chloride 1000 Ml 1000 Ml 1,000 ML @ 125 mls/hr IVC .Q8H36M [facility] Rx#:[id number] Maxipime 1,000 MG In Water for 10 / 10 inj. (sterile) 10 ML @ 300 mls/ hr IVP Q24H [facility] Rx#:[id number] Ofirmev 1,000 mg/100 ml 500 mg 50 / 50 In 50 ml @ 200 mls/hr IVPB ONCE ONE Rx#:[id number] Flagyl Premix 500 MG/100 ML 500 100 / 100 100 / 100 mg In 100 ml @ 100 mls/hr IVPB Q8H [facility] Rx#:[id number] Vancocin 1,500 MG In 0.9 % 250 / 250 Sodium Chloride 250 ML @ 166. 667 mls/hr IVPB ONCE ONE Rx#: [id number] Output: Straight Cath 50 / 50 Other: Blood Glucose* 212 - Labs 07/08/18 02:52 07/08/18 02:52 Diabetes panel 07/07/18 07/08/18 Range/Units 18:11 02:52 Sodium 133 L 133 L (136-145) mEq/L Potassium 5.9 H 6.3 H (3.5-5.1) mEq/L Chloride 100 100 (98-107) mEq/L Carbon Dioxide 19 L 15 L (23-29) mEq/L BUN 93 H 106 H (8-23) mg/dL Creatinine 4.32 H 4.42 H (0.60-1.20) mg/dL Glucose 227 H 137 H (70-105) mg/dL Calcium 11.4 H 11.5 H (8.6-10.3) mg/dL Calcium panel 07/07/18 07/08/18 Range/Units 18:11 02:52 Calcium 11.4 H 11.5 H (8.6-10.3) mg/dL Phosphorus 7.5 H (2.7-4.5) mg/dL Pituitary panel 07/07/18 07/08/18 Range/Units 18:11 02:52 Sodium 133 L 133 L (136-145) mEq/L Potassium 5.9 H 6.3 H (3.5-5.1) mEq/L Chloride 100 100 (98-107) mEq/L Carbon Dioxide 19 L 15 L (23-29) mEq/L BUN 93 H 106 H (8-23) mg/dL Creatinine 4.32 H 4.42 H (0.60-1.20) mg/dL Glucose 227 H 137 H (70-105) mg/dL Calcium 11.4 H 11.5 H (8.6-10.3) mg/dL Adrenal panel 07/07/18 07/08/18 Range/Units 18:11 02:52 Sodium 133 L 133 L (136-145) mEq/L Potassium 5.9 H 6.3 H (3.5-5.1) mEq/L Chloride 100 100 (98-107) mEq/L Carbon Dioxide 19 L 15 L (23-29) mEq/L BUN 93 H 106 H (8-23) mg/dL Creatinine 4.32 H 4.42 H (0.60-1.20) mg/dL Glucose 227 H 137 H (70-105) mg/dL Calcium 11.4 H 11.5 H (8.6-10.3) mg/dL - Attending Attestation I examined this patient and my medical decision-making was reviewed with the Resident Physician. I agree with the documented findings, disposition and t reatment plan as described except to the extent set forth below. The patient is seen and evaluated on morning rounds with the acute care surgery team. The patient has dyspnea and disorientation. I examined the patient and findings are consistent with intra-abdominal catastrophe likely bowel ischemia. The patient is currently undergoing treatment for metastatic squamous cell carcinoma. Aggressive measures would include intubation and abdominal exploration I doubt that surgical exploration with significantly benefit the patient and increase her life expectancy I shared this information with the patient's family. They have selected hospice. This is a completely reasonable decision. I will be available patient's family has any further questions or needs to talk about their decision Jah Batista MD FACS
[2018-07-08] MEDS ORDERED: *HR* LORazepam 2 MG/ML VIAL IVP PRN (10:00)
[2018-07-08] MEDS ORDERED: Glycopyrrolate 0.2 MG/ML VIAL IVP SCH (10:00)
[2018-07-08] MEDS ORDERED: Aminoglycoside Consult 1 EACH MC ONE (10:24)
--- NOTE | 2018-07-08 10:38 | Discharge Summary ---
<Michela Valdez M - Last Filed: 07/08/18 12:17> Orders not resulted at time of discharge: Pending orders 07/07/18 10:50 Culture,Blood [BC] Stat 07/07/18 17:57 Sputum Culture [Culture,Sputum with Gram Stain] [RM] Routine 07/07/18 23:22 CTA Abdomen/Pelvis [CT angio abdomen pelvis] [CT] Routine 07/09/18 04:00 Vancomycin,Random AM 0400 Date of Encounter: 07/08/18 Time of Encounter: 10:25 - Discharge Diagnosis (1) Ischemic colitis Priority: Primary Status: Acute (2) Sepsis Priority: Secondary Status: Acute Qualifiers: Sepsis type: sepsis due to unspecified organism Qualified Code(s): A41.9 - Sepsis, unspecified organism (3) Pneumonia Priority: Secondary Status: Acute Qualifiers: Pneumonia type: due to unspecified organism Laterality: right Lung location: upper lobe of lung Qualified Code(s): J18.1 - Lobar pneumonia, unspecified organism (4) Acute encephalopathy Priority: Secondary Status: Acute (5) Acute kidney injury superimposed on chronic kidney disease Priority: Secondary Status: Acute (6) Hypercalcemia Priority: Secondary Status: Acute (7) Hyperkalemia Priority: Secondary Status: Acute (8) Metastatic squamous cell carcinoma Priority: Secondary Status: Acute (9) DVT prophylaxis Priority: Secondary Status: Acute - Discharge Medications Prescriptions: No Action RX: Furosemide [Lasix] 20 mg PO DAILY RX: Aspirin 81 mg PO DAILY RX: Ondansetron HCl [Zofran] 4 mg PO Q4H PRN #30 tablet PRN Reason: Nausea RX: Cyanocobalamin (B-12) [Vitamin B12] 1,000 mcg SL DAILY #30 tablet RX: FentaNYL PATCH [Duragesic] 25 mcg TD Q72H 30 Days #10 patch.[id number] Docusate Sodium [Stool Softener] 100 mg PO DAILY Omeprazole [PriLOSEC] 20 mg PO DAILY Home Medications: RX: Aspirin 81 mg PO DAILY 09/02/16 [History] RX: Furosemide [Lasix] 20 mg PO DAILY 09/02/16 [History] RX: Ondansetron HCl [Zofran] 4 mg PO Q4H PRN #30 tablet 06/11/18 [Rx] RX: Cyanocobalamin (B-12) [Vitamin B12] 1,000 mcg SL DAILY #30 tablet 06/23/18 [Rx] RX: FentaNYL PATCH [Duragesic] 25 mcg TD Q72H 30 Days #10 patch.[id number] 07/06/18 [Rx] Docusate Sodium [Stool Softener] 100 mg PO DAILY 07/07/18 [History] Omeprazole [PriLOSEC] 20 mg PO DAILY 07/07/18 [History] Allergies/Adverse Reactions: Allergy/AdvReac Type Severity Reaction Status Date / Time Penicillins Allergy Swelling Verified 07/06/18 15:11 of Lip/Tongue/Throat Labs on day of discharge: Labs from last 24 hours 07/08/18 07/08/18 07/08/18 02:52 02:52 02:52 WBC RBC Hgb Hct MCV MCH MCHC RDW Plt Count MPV Immature Gran % Seg Neutrophils % Band Neutrophils % Lymphocytes % Monocytes % Eosinophils % Basophils % Metamyelocytes % Neutrophils # Lymphocytes # Monocytes # Eosinophils # Basophils # Nucleated RBCs/100 WBC Platelet Estimate Polychromasia PT INR APTT Sample Site ABG pH ABG pCO2 ABG pO2 ABG HCO3 ABG Total CO2 ABG O2 Saturation ABG Base Excess Bob Test O2 Delivery Device Inspired O2 Sodium 133 L Potassium 6.3 H Chloride 100 Carbon Dioxide 15 L BUN 106 H Creatinine 4.42 H Est GFR ( Amer) 12 L Est GFR (Non-Af Amer) 10 L BUN/Creatinine Ratio 24 Glucose 137 H POC Glucose Calculated Osmolality 311 H Lactic Acid 3.0 H Uric Acid 8.6 H Calcium 11.5 H Venous Ioniz Calcium Phosphorus 7.5 H Magnesium 2.9 H Total Bilirubin AST ALT Alkaline Phosphatase Ammonia 122 H Creatine Kinase Troponin I B-Natriuretic Peptide Serum Total Protein Albumin Globulin Albumin/Globulin Ratio TSH PTH Intact Random Cortisol Urine Color Urine Clarity Urine pH Ur Specific [place] Urine Protein Urine Glucose (UA) Urine Ketones Urine Blood Urine Nitrite Urine Bilirubin Urine Urobilinogen Ur Leukocyte Esterase Urine Microscopic RBC Urine Microscopic WBC Ur Squamous Epith Cells Amorphous Sediment Urine Bacteria Hyaline Casts Urine Creatinine Urine Microalbumin Microalb/Creat Ratio Protein/Creatinin Ratio Urine Sodium Urine Total Protein Nasal Screen MRSA (PCR) Random Vancomycin 35 07/08/18 07/08/18 07/07/18 02:52 02:52 23:25 WBC 7.9 RBC 4.17 Hgb 12.4 Hct 38.9 MCV 93.3 MCH 29.7 MCHC 31.9 RDW 12.5 Plt Count 177 MPV 10.9 Immature Gran % Seg Neutrophils % 52.0 Band Neutrophils % 32.0 H Lymphocytes % 10.0 Monocytes % 2.0 Eosinophils % Basophils % Metamyelocytes % 4.0 H Neutrophils # 6.6 Lymphocytes # 0.8 Monocytes # 0.2 Eosinophils # Basophils # Nucleated RBCs/100 WBC 0.8 H Platelet Estimate Normal Polychromasia 1+ A PT INR APTT Sample Site ABG pH ABG pCO2 ABG pO2 ABG HCO3 ABG Total CO2 ABG O2 Saturation ABG Base Excess Bob Test O2 Delivery Device Inspired O2 Sodium Potassium Chloride Carbon Dioxide BUN Creatinine Est GFR ( Amer) Est GFR (Non-Af Amer) BUN/Creatinine Ratio Glucose POC Glucose 150 H Calculated Osmolality Lactic Acid Uric Acid Calcium Venous Ioniz Calcium Phosphorus Magnesium Total Bilirubin AST ALT Alkaline Phosphatase Ammonia Creatine Kinase Troponin I B-Natriuretic Peptide Serum Total Protein Albumin Globulin Albumin/Globulin Ratio TSH PTH Intact 39.5 Random Cortisol Urine Color Urine Clarity Urine pH Ur Specific [place] Urine Protein Urine Glucose (UA) Urine Ketones Urine Blood Urine Nitrite Urine Bilirubin Urine Urobilinogen Ur Leukocyte Esterase Urine Microscopic RBC Urine Microscopic WBC Ur Squamous Epith Cells Amorphous Sediment Urine Bacteria Hyaline Casts Urine Creatinine Urine Microalbumin Microalb/Creat Ratio Protein/Creatinin Ratio Urine Sodium Urine Total Protein Nasal Screen MRSA (PCR) Random Vancomycin 07/07/18 07/07/18 07/07/18 19:15 18:55 18:11 WBC RBC Hgb Hct MCV MCH MCHC RDW Plt Count MPV Immature Gran % Seg Neutrophils % Band Neutrophils % Lymphocytes % Monocytes % Eosinophils % Basophils % Metamyelocytes % Neutrophils # Lymphocytes # Monocytes # Eosinophils # Basophils # Nucleated RBCs/100 WBC Platelet Estimate Polychromasia PT INR APTT Sample Site ABG pH ABG pCO2 ABG pO2 ABG HCO3 ABG Total CO2 ABG O2 Saturation ABG Base Excess Bob Test O2 Delivery Device Inspired O2 Sodium Potassium Chloride Carbon Dioxide BUN Creatinine Est GFR ( Amer) Est GFR (Non-Af Amer) BUN/Creatinine Ratio Glucose POC Glucose Calculated Osmolality Lactic Acid Uric Acid Calcium Venous Ioniz Calcium Phosphorus Magnesium Total Bilirubin AST ALT Alkaline Phosphatase Ammonia Creatine Kinase Troponin I B-Natriuretic Peptide Serum Total Protein Albumin Globulin Albumin/Globulin Ratio TSH PTH Intact Random Cortisol > 60.0 Urine Color Urine Clarity Urine pH Ur Specific [place] Urine Protein Urine Glucose (UA) Urine Ketones Urine Blood Urine Nitrite Urine Bilirubin Urine Urobilinogen Ur Leukocyte Esterase Urine Microscopic RBC Urine Microscopic WBC Ur Squamous Epith Cells Amorphous Sediment Urine Bacteria Hyaline Casts Urine Creatinine 110 Urine Microalbumin 349 Microalb/Creat Ratio 317 H Protein/Creatinin Ratio 1.62 H Urine Sodium 24.3 Urine Total Protein 178 H Nasal Screen MRSA (PCR) Negative Random Vancomycin 07/07/18 07/07/18 07/07/18 18:11 18:11 17:58 WBC RBC Hgb Hct MCV MCH MCHC RDW Plt Count MPV Immature Gran % Seg Neutrophils % Band Neutrophils % Lymphocytes % Monocytes % Eosinophils % Basophils % Metamyelocytes % Neutrophils # Lymphocytes # Monocytes # Eosinophils # Basophils # Nucleated RBCs/100 WBC Platelet Estimate Polychromasia PT INR APTT Sample Site ABG pH ABG pCO2 ABG pO2 ABG HCO3 ABG Total CO2 ABG O2 Saturation ABG Base Excess Bob Test O2 Delivery Device Inspired O2 Sodium 133 L Potassium 5.9 H Chloride 100 Carbon Dioxide 19 L BUN 93 H Creatinine 4.32 H Est GFR ( Amer) 12 L Est GFR (Non-Af Amer) 10 L BUN/Creatinine Ratio 22 Glucose 227 H POC Glucose 212 H Calculated Osmolality 312 H Lactic Acid 2.9 H Uric Acid Calcium 11.4 H Venous Ioniz Calcium Phosphorus Magnesium Total Bilirubin AST ALT Alkaline Phosphatase Ammonia Creatine Kinase Troponin I B-Natriuretic Peptide Serum Total Protein Albumin Globulin Albumin/Globulin Ratio TSH PTH Intact Random Cortisol Cancelled Urine Color Urine Clarity Urine pH Ur Specific [place] Urine Protein Urine Glucose (UA) Urine Ketones Urine Blood Urine Nitrite Urine Bilirubin Urine Urobilinogen Ur Leukocyte Esterase Urine Microscopic RBC Urine Microscopic WBC Ur Squamous Epith Cells Amorphous Sediment Urine Bacteria Hyaline Casts Urine Creatinine Urine Microalbumin Microalb/Creat Ratio Protein/Creatinin Ratio Urine Sodium Urine Total Protein Nasal Screen MRSA (PCR) Random Vancomycin 07/07/18 07/07/18 07/07/18 14:23 14:04 11:45 WBC RBC Hgb Hct MCV MCH MCHC RDW Plt Count MPV Immature Gran % Seg Neutrophils % Band Neutrophils % Lymphocytes % Monocytes % Eosinophils % Basophils % Metamyelocytes % Neutrophils # Lymphocytes # Monocytes # Eosinophils # Basophils # Nucleated RBCs/100 WBC Platelet Estimate Polychromasia PT INR APTT Sample Site ABG pH ABG pCO2 ABG pO2 ABG HCO3 ABG Total CO2 ABG O2 Saturation ABG Base Excess Bob Test O2 Delivery Device Inspired O2 Sodium Potassium Chloride Carbon Dioxide BUN Creatinine Est GFR ( Amer) Est GFR (Non-Af Amer) BUN/Creatinine Ratio Glucose POC Glucose Calculated Osmolality Lactic Acid Uric Acid Calcium Venous Ioniz Calcium 1.57 H Phosphorus Magnesium Total Bilirubin AST ALT Alkaline Phosphatase Ammonia Creatine Kinase 71 Troponin I B-Natriuretic Peptide Serum Total Protein Albumin Globulin Albumin/Globulin Ratio TSH PTH Intact Random Cortisol Urine Color Dark Yellow Urine Clarity Slightly Hazy Urine pH 5.0 Ur Specific [place] 1.030 H Urine Protein 30 H Urine Glucose (UA) Normal Urine Ketones Negative Urine Blood Negative Urine Nitrite Negative Urine Bilirubin Small H Urine Urobilinogen Normal Ur Leukocyte Esterase Trace H Urine Microscopic RBC 0-3 Urine Microscopic WBC 0-3 Ur Squamous Epith Cells Many H Amorphous Sediment Moderate H Urine Bacteria None Seen Hyaline Casts Moderate H Urine Creatinine Urine Microalbumin Microalb/Creat Ratio Protein/Creatinin Ratio Urine Sodium Urine Total Protein Nasal Screen MRSA (PCR) Random Vancomycin 07/07/18 07/07/18 07/07/18 11:00 11:00 11:00 WBC RBC Hgb Hct MCV MCH MCHC RDW Plt Count MPV Immature Gran % Seg Neutrophils % Band Neutrophils % Lymphocytes % Monocytes % Eosinophils % Basophils % Metamyelocytes % Neutrophils # Lymphocytes # Monocytes # Eosinophils # Basophils # Nucleated RBCs/100 WBC Platelet Estimate Polychromasia PT 12.9 H INR 1.1 APTT 24.1 L Sample Site ABG pH ABG pCO2 ABG pO2 ABG HCO3 ABG Total CO2 ABG O2 Saturation ABG Base Excess Bob Test O2 Delivery Device Inspired O2 Sodium Potassium Chloride Carbon Dioxide BUN Creatinine Est GFR ( Amer) Est GFR (Non-Af Amer) BUN/Creatinine Ratio Glucose POC Glucose Calculated Osmolality Lactic Acid Uric Acid Calcium Venous Ioniz Calcium Phosphorus Magnesium Total Bilirubin AST ALT Alkaline Phosphatase Ammonia 88 H Creatine Kinase Troponin I B-Natriuretic Peptide 120 H Serum Total Protein Albumin Globulin Albumin/Globulin Ratio TSH PTH Intact Random Cortisol Urine Color Urine Clarity Urine pH Ur Specific [place] Urine Protein Urine Glucose (UA) Urine Ketones Urine Blood Urine Nitrite Urine Bilirubin Urine Urobilinogen Ur Leukocyte Esterase Urine Microscopic RBC Urine Microscopic WBC Ur Squamous Epith Cells Amorphous Sediment Urine Bacteria Hyaline Casts Urine Creatinine Urine Microalbumin Microalb/Creat Ratio Protein/Creatinin Ratio Urine Sodium Urine Total Protein Nasal Screen MRSA (PCR) Random Vancomycin 07/07/18 07/07/18 07/07/18 11:00 11:00 11:00 WBC 11.4 H RBC 4.26 Hgb 12.8 Hct 39.7 MCV 93.2 MCH 30.0 MCHC 32.2 RDW 12.4 Plt Count 222 MPV 10.3 Immature Gran % 1.8 Seg Neutrophils % 88.4 Band Neutrophils % Lymphocytes % 3.8 Monocytes % 5.5 Eosinophils % 0.1 Basophils % 0.4 Metamyelocytes % Neutrophils # 10.1 H Lymphocytes # 0.4 L Monocytes # 0.6 Eosinophils # 0.0 Basophils # 0.1 Nucleated RBCs/100 WBC 0.5 H Platelet Estimate Polychromasia PT INR APTT Sample Site ABG pH ABG pCO2 ABG pO2 ABG HCO3 ABG Total CO2 ABG O2 Saturation ABG Base Excess Bob Test O2 Delivery Device Inspired O2 Sodium 132 L Potassium 6.0 H Chloride 94 L Carbon Dioxide 21 L BUN 92 H Creatinine 4.62 H Est GFR ( Amer) 11 L Est GFR (Non-Af Amer) 9 L BUN/Creatinine Ratio 20 Glucose 174 H POC Glucose Calculated Osmolality 307 H Lactic Acid 2.7 H Uric Acid Calcium 13.3 H* Venous Ioniz Calcium Phosphorus Magnesium Total Bilirubin 1.1 H AST 28 ALT 14 Alkaline Phosphatase 104 Ammonia Creatine Kinase Troponin I < 0.03 B-Natriuretic Peptide Serum Total Protein 6.6 Albumin 3.3 L Globulin 3.3 Albumin/Globulin Ratio 1.0 L TSH 2.152 PTH Intact Random Cortisol Urine Color Urine Clarity Urine pH Ur Specific [place] Urine Protein Urine Glucose (UA) Urine Ketones Urine Blood Urine Nitrite Urine Bilirubin Urine Urobilinogen Ur Leukocyte Esterase Urine Microscopic RBC Urine Microscopic WBC Ur Squamous Epith Cells Amorphous Sediment Urine Bacteria Hyaline Casts Urine Creatinine Urine Microalbumin Microalb/Creat Ratio Protein/Creatinin Ratio Urine Sodium Urine Total Protein Nasal Screen MRSA (PCR) Random Vancomycin 07/07/18 10:58 WBC RBC Hgb Hct MCV MCH MCHC RDW Plt Count MPV Immature Gran % Seg Neutrophils % Band Neutrophils % Lymphocytes % Monocytes % Eosinophils % Basophils % Metamyelocytes % Neutrophils # Lymphocytes # Monocytes # Eosinophils # Basophils # Nucleated RBCs/100 WBC Platelet Estimate Polychromasia PT INR APTT Sample Site L Radial ABG pH 7.36 ABG pCO2 45 ABG pO2 94 ABG HCO3 25 ABG Total CO2 27 H ABG O2 Saturation 97 ABG Base Excess -1 Bob Test N/A O2 Delivery Device Cannula Inspired O2 32.0 Sodium Potassium Chloride Carbon Dioxide BUN Creatinine Est GFR ( Amer) Est GFR (Non-Af Amer) BUN/Creatinine Ratio Glucose POC Glucose Calculated Osmolality Lactic Acid Uric Acid Calcium Venous Ioniz Calcium Phosphorus Magnesium Total Bilirubin AST ALT Alkaline Phosphatase Ammonia Creatine Kinase Troponin I B-Natriuretic Peptide Serum Total Protein Albumin Globulin Albumin/Globulin Ratio TSH PTH Intact Random Cortisol Urine Color Urine Clarity Urine pH Ur Specific [place] Urine Protein Urine Glucose (UA) Urine Ketones Urine Blood Urine Nitrite Urine Bilirubin Urine Urobilinogen Ur Leukocyte Esterase Urine Microscopic RBC Urine Microscopic WBC Ur Squamous Epith Cells Amorphous Sediment Urine Bacteria Hyaline Casts Urine Creatinine Urine Microalbumin Microalb/Creat Ratio Protein/Creatinin Ratio Urine Sodium Urine Total Protein Nasal Screen MRSA (PCR) Random Vancomycin Preliminary micro results at discharge 07/07/18 11:00 Blood Culture - Preliminary Peripheral Venipuncture Culture is incubating and being continuously monitored for growth. Final report to follow. 07/07/18 10:50 Blood Culture - Preliminary Peripheral Venipuncture Culture is incubating and being continuously monitored for growth. Final report to follow. - Impressions ITS Impressions Chest X-Ray 07/07/18 10:10 IMPRESSION: Right upper lobe consolidation or atelectasis. D/ / 07/07/2018 11:04:59 Manny Fabian MD / Harleen Klein Interpreting Provider: Manny Fabian MD Head CT 07/07/18 10:10 IMPRESSION: No acute intracranial abnormality. Mild to moderate parenchymal volume loss, most pronounced in the bilateral frontal and anterior temporal lobes. Minimal chronic microvascular disease. D/ / Matthew Fitzpatrick MD / Matthew Fitzpatrick MD Interpreting Provider: Matthew Fitzpatrick MD Retroperitoneum Ultrasound 07/07/18 15:12 IMPRESSION: Polycystic kidney disease. No evidence of hydronephrosis. Urinary bladder is decompressed by a Rivas catheter. D/ / Patrice Truong MD / Patrice Truong MD Interpreting Provider: Patrice Truong MD Abdomen/Pelvis CT 07/07/18 16:31 IMPRESSION: Findings suspicious for ischemic colitis given gas within the mesenteric venules and portal venous system. Correlate with serum lactate and consider CT angiogram of the abdomen and pelvis. Sigmoid colonic diverticulosis with wall thickening, the latter of which is presumably related to the above. Dilated loops of small bowel are favored to represent a reactive adynamic ileus. Ill-defined gallbladder wall, obscured by motion artifact. If there is concern for cholecystitis, consider ultrasound evaluation. Unchanged cystic adnexal/ovarian masses, which may be further evaluated with ultrasound on a nonemergent basis. D/ / 07/07/2018 18:35:42 Cyrus Cross / earnold Interpreting Provider: Cyrus Cross Chest X-Ray 07/08/18 07:21 IMPRESSION: Right upper lobe collapse, which is new from yesterday's chest radiograph. Underlying pneumonia is a consideration. Mucous plugging is most likely. Respiratory therapy consultation is suggested. If the finding persists, consider CT for further evaluation. D/ / Julio César Finley MD / Julio César Finley MD Interpreting Provider: Julio César Finley MD Date of admission: 07/07/18 14:52 Primary care physician: Humza Dickerson Consults: 07/07/18 12:29 Consult to Nephrology [CONS] Stat Consulting Provider: [facility] [place]/ANDREA/GENIA/ZORAIDA Reason for Consult: acute on chronic renal failure Call Completed: Yes 07/07/18 16:03 Consult to Palliative Care [CONS] Routine Comment: Consulting Provider: [facility] [place] Reason for Consult: Hx of squamous cell carcinoma with mets to bone, on radiation therapy, starting immunotherapy on Friday. Significant confusion likely metabolic, electrolyte abnormalities, KAILEY on CKD, poor PO intake, full code Call Completed: No 07/07/18 17:22 Consult to Oncology [CONS] Routine Consulting Provider: [facility] [place] Reason for Consult: SCC carcinoma with bone metastasis, follows up with Dr. Kim. Call Completed: Yes 07/07/18 18:52 Consult to Surgery [CONS] Stat Consulting Provider: [facility] [place] [facility] Reason for Consult: ischemic colitis Time Notified: 18:53 Call Completed: Yes Discharging clinician: Michela Valdez Anticipated date of discharge: 07/08/18 - Patient Status Disposition: - Discharge Instructions Follow Up With: Humza Dickerson DO [Primary Care Provider] - - Hospital Course Hospital course: Ms. Broussard is a 72 year old female with past medical history including chronic kidney disease, stage III/IV who follows up with Dr. 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 Patient's last chemotherapy was in February 2018. Patient is currently receiving radiation therapy for bone metastasis. She presented to the emergency department today with decreased consciousness and confusion. The patient was complaining of increased pain, especially in her left shoulder, to the emergency department 2 days ago. She takes a fentanyl patch at home for chronic pain and was prescribed additional morphine. Yesterday morning,the patient's and daughter states the patient was very drowsy and not very responsive. She would open her eyes to her name however would just stare into space. She was not answering questions. Family took off her fentanyl patch which seemed to help somewhat. They state her mental status have been waxing and waning throughout the day and brought the patient to the emergency department for further evaluation. They deny recent illnesses. Last radiation was 07/06. She has had a decreased appetite for the past couple of days and constipation. The patient was found to be septic with lactic acidosis. Chest x-ray showed right upper lobe pneumonia. She received cefepime and linezolid the emergency department linezolid was switched to vancomycin. Blood cultures were negative to date. Legionella and strep antigen were negative. She was also noted to have acute on chronic kidney disease and nephrology was consultative. Patient had hyperkalemia and hypercalcemia. Patient was noted to be significantly dehydrated and received boluses of IV fluids as well as maintenance fluids. Hypercalcemia likely secondary to bone metastasis. Parathyroid hormone and TSH were normal. The patient was also noted to have a distended and significantly tender abdomen. CT abdomen and pelvis without contrast was obtained. Results were suspicious for ischemic colitis with gas within the mesenteric venules in portal venous system, sigmoid colonic diverticulosis with wall thickening, reactive adynamic ileus. General surgery consultation was obtained. They recommended adding Flagyl to the antibiotic regimen. Patient was nothing by mouth. This morning, lactic acidosis worsened. Patient's abdomen remained distended and significantly tender. Patient's [place] I electrolyte abnormalities were worsening, including elevated ammonia level. General surgery evaluated the patient again. They had a discussion with family about the patient's critical illness and possible ischemic colitis involving the entire bowel. We discussed with the family goals of care. Palliative care was consultative as well. Family decided they would like the patient to be comfortable. CODE STATUS was changed to DNR/DNI, Comfort Care arrest. Fentanyl was given for pain control. Patient was made comfortable. Family and pastoral services were at bedside. Time of 10:25. - Time Spent with Patient Total time spent providing and/or coordinating discharge services: Physical Examination Vital Signs: Vital Signs, Last 4 Hours Temp Pulse Resp BP Pulse Ox 07/08/18 08:35 100.6 F H 07/08/18 07:00 110 38 106/82 85 Eyes: other (fixed dilated pupils) ENT: oropharynx dry Effort: other (no spontaneous breath sounds) Cardiovascular: other (asystole, pulseless) Gastrointestinal: other (distended abdomen) Extremities: no edema Musculoskeletal: no deformities other (non responsive) <Adalberto Donald M - Last Filed: 07/08/18 13:30> Orders not resulted at time of discharge: Pending orders 07/07/18 10:50 Culture,Blood [BC] Stat 07/09/18 04:00 Vancomycin,Random AM 0400 Date of Encounter: 07/08/18 Labs on day of discharge: Labs from last 24 hours 07/08/18 07/08/18 07/08/18 02:52 02:52 02:52 WBC RBC Hgb Hct MCV MCH MCHC RDW Plt Count MPV Seg Neutrophils % Band Neutrophils % Lymphocytes % Monocytes % Metamyelocytes % Neutrophils # Lymphocytes # Monocytes # Nucleated RBCs/100 WBC Platelet Estimate Polychromasia Sodium 133 L Potassium 6.3 H Chloride 100 Carbon Dioxide 15 L BUN 106 H Creatinine 4.42 H Est GFR ( Amer) 12 L Est GFR (Non-Af Amer) 10 L BUN/Creatinine Ratio 24 Glucose 137 H POC Glucose Calculated Osmolality 311 H Lactic Acid 3.0 H Uric Acid 8.6 H Calcium 11.5 H Venous Ioniz Calcium Phosphorus 7.5 H Magnesium 2.9 H Ammonia 122 H Creatine Kinase PTH Intact Random Cortisol Urine Creatinine Urine Microalbumin Microalb/Creat Ratio Protein/Creatinin Ratio Urine Sodium Urine Total Protein Nasal Screen MRSA (PCR) Random Vancomycin 35 07/08/18 07/08/18 07/07/18 02:52 02:52 23:25 WBC 7.9 RBC 4.17 Hgb 12.4 Hct 38.9 MCV 93.3 MCH 29.7 MCHC 31.9 RDW 12.5 Plt Count 177 MPV 10.9 Seg Neutrophils % 52.0 Band Neutrophils % 32.0 H Lymphocytes % 10.0 Monocytes % 2.0 Metamyelocytes % 4.0 H Neutrophils # 6.6 Lymphocytes # 0.8 Monocytes # 0.2 Nucleated RBCs/100 WBC 0.8 H Platelet Estimate Normal Polychromasia 1+ A Sodium Potassium Chloride Carbon Dioxide BUN Creatinine Est GFR ( Amer) Est GFR (Non-Af Amer) BUN/Creatinine Ratio Glucose POC Glucose 150 H Calculated Osmolality Lactic Acid Uric Acid Calcium Venous Ioniz Calcium Phosphorus Magnesium Ammonia Creatine Kinase PTH Intact 39.5 Random Cortisol Urine Creatinine Urine Microalbumin Microalb/Creat Ratio Protein/Creatinin Ratio Urine Sodium Urine Total Protein Nasal Screen MRSA (PCR) Random Vancomycin 07/07/18 07/07/18 07/07/18 19:15 18:55 18:11 WBC RBC Hgb Hct MCV MCH MCHC RDW Plt Count MPV Seg Neutrophils % Band Neutrophils % Lymphocytes % Monocytes % Metamyelocytes % Neutrophils # Lymphocytes # Monocytes # Nucleated RBCs/100 WBC Platelet Estimate Polychromasia Sodium Potassium Chloride Carbon Dioxide BUN Creatinine Est GFR ( Amer) Est GFR (Non-Af Amer) BUN/Creatinine Ratio Glucose POC Glucose Calculated Osmolality Lactic Acid Uric Acid Calcium Venous Ioniz Calcium Phosphorus Magnesium Ammonia Creatine Kinase PTH Intact Random Cortisol > 60.0 Urine Creatinine 110 Urine Microalbumin 349 Microalb/Creat Ratio 317 H Protein/Creatinin Ratio 1.62 H Urine Sodium 24.3 Urine Total Protein 178 H Nasal Screen MRSA (PCR) Negative Random Vancomycin 07/07/18 07/07/18 07/07/18 18:11 18:11 17:58 WBC RBC Hgb Hct MCV MCH MCHC RDW Plt Count MPV Seg Neutrophils % Band Neutrophils % Lymphocytes % Monocytes % Metamyelocytes % Neutrophils # Lymphocytes # Monocytes # Nucleated RBCs/100 WBC Platelet Estimate Polychromasia Sodium 133 L Potassium 5.9 H Chloride 100 Carbon Dioxide 19 L BUN 93 H Creatinine 4.32 H Est GFR ( Amer) 12 L Est GFR (Non-Af Amer) 10 L BUN/Creatinine Ratio 22 Glucose 227 H POC Glucose 212 H Calculated Osmolality 312 H Lactic Acid 2.9 H Uric Acid Calcium 11.4 H Venous Ioniz Calcium Phosphorus Magnesium Ammonia Creatine Kinase PTH Intact Random Cortisol Cancelled Urine Creatinine Urine Microalbumin Microalb/Creat Ratio Protein/Creatinin Ratio Urine Sodium Urine Total Protein Nasal Screen MRSA (PCR) Random Vancomycin 07/07/18 07/07/18 14:23 14:04 WBC RBC Hgb Hct MCV MCH MCHC RDW Plt Count MPV Seg Neutrophils % Band Neutrophils % Lymphocytes % Monocytes % Metamyelocytes % Neutrophils # Lymphocytes # Monocytes # Nucleated RBCs/100 WBC Platelet Estimate Polychromasia Sodium Potassium Chloride Carbon Dioxide BUN Creatinine Est GFR ( Amer) Est GFR (Non-Af Amer) BUN/Creatinine Ratio Glucose POC Glucose Calculated Osmolality Lactic Acid Uric Acid Calcium Venous Ioniz Calcium 1.57 H Phosphorus Magnesium Ammonia Creatine Kinase 71 PTH Intact Random Cortisol Urine Creatinine Urine Microalbumin Microalb/Creat Ratio Protein/Creatinin Ratio Urine Sodium Urine Total Protein Nasal Screen MRSA (PCR) Random Vancomycin Preliminary micro results at discharge 07/07/18 11:00 Blood Culture - Preliminary Peripheral Venipuncture Culture is incubating and being continuously monitored for growth. Final report to follow. 07/07/18 10:50 Blood Culture - Preliminary Peripheral Venipuncture Culture is incubating and being continuously monitored for growth. Final report to follow. - Impressions ITS Impressions Chest X-Ray 07/07/18 10:10 IMPRESSION: Right upper lobe consolidation or atelectasis. D/ / 07/07/2018 11:04:59 Manny Fabian MD / Harleen Klein Interpreting Provider: Manny Fabian MD Head CT 07/07/18 10:10 IMPRESSION: No acute intracranial abnormality. Mild to moderate parenchymal volume loss, most pronounced in the bilateral frontal and anterior temporal lobes. Minimal chronic microvascular disease. D/ / Matthew Fitzpatrick MD / Matthew Fitzpatrick MD Interpreting Provider: Matthew Fitzpatrick MD Retroperitoneum Ultrasound 07/07/18 15:12 IMPRESSION: Polycystic kidney disease. No evidence of hydronephrosis. Urinary bladder is decompressed by a Rivas catheter. D/ / Patrice Truong MD / Patrice Truong MD Interpreting Provider: Patrice Truong MD Abdomen/Pelvis CT 07/07/18 16:31 IMPRESSION: Findings suspicious for ischemic colitis given gas within the mesenteric venules and portal venous system. Correlate with serum lactate and consider CT angiogram of the abdomen and pelvis. Sigmoid colonic diverticulosis with wall thickening, the latter of which is presumably related to the above. Dilated loops of small bowel are favored to represent a reactive adynamic ileus. Ill-defined gallbladder wall, obscured by motion artifact. If there is concern for cholecystitis, consider ultrasound evaluation. Unchanged cystic adnexal/ovarian masses, which may be further evaluated with ultrasound on a nonemergent basis. Critical results were called by Dr. Cyrus Cross to Dr. Rosado on 07/07/2018 at 18:35. D/ / 07/07/2018 18:35:42 Cyrus Cross / lisha Interpreting Provider: Cyrus Cross Chest X-Ray 07/08/18 07:21 IMPRESSION: Right upper lobe collapse, which is new from yesterday's chest radiograph. Underlying pneumonia is a consideration. Mucous plugging is most likely. Respiratory therapy consultation is suggested. If the finding persists, consider CT for further evaluation. 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 Significant confusion likely metabolic, electrolyte abnormalities, KAILEY on CKD, poor PO intake, full code Call Completed: No 07/07/18 17:22 Consult to Oncology [CONS] Routine Consulting Provider: [facility] [place] Reason for Consult: SCC carcinoma with bone metastasis, follows up with Dr. Kim. Call Completed: Yes 07/07/18 18:52 Consult to Surgery [CONS] Stat Consulting Provider: Surgery [facility] Reason for Consult: ischemic colitis Time Notified: 18:53 Call Completed: Yes - Hospital Course Hospital course: Ms. Broussard is a 72 year old female - Time Spent with Patient Total time spent providing and/or coordinating discharge services: - Attending Attestation I examined this patient and my medical decision-making was reviewed with the Resident Physician. I agree with the documented findings, disposition and treatment plan as described except to the extent set forth below. Patient seen and examined. Labs, radiology, chart personally reviewed. very unfortunate 72-year-old female was admitted for hypercalcemia and ischemic bowel and this morning patient was complaining and very uncomfortable and we had discussion with the family and they decided patient could status to be changed and subsequently patient and the family at the bedside.
[2018-07-08 14:46] VITALS: BP 83/45
--- NOTE | 2018-07-08 18:08 | Electrocardiograph Report ---
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
== END 2018-07-08 10:25 | disposition expired | DRG 871 ==
LOC: EMEROOARM 10:02 → ICNU 14:52
PROVIDERS: ADMIT Internal Medicine Pulmonary Disease; ATTEND Internal Medicine Pulmonary Disease